=== PATIENT | male | born 1960 | race Caucasian/White ===

== ENCOUNTER 2021-06-08 11:29 | Inpatient (IN) | payer MEDICARE, MEDICAID, SELFPAY ==
[2021-06-08] VITALS (13 sets, daily range): BP systolic 118–157; BP diastolic 67–116; PULSE 85–119; RESP 16–129; TEMP 36.2; O2SAT 18–100
--- NOTE | ~2021-06-08 | XR_ITS ---
EXAMINATION: XR chest 2V DATE: 06/08/2021 12:21 INDICATION: Shortness of breath. Body aches. TECHNIQUE: Frontal and lateral views of the chest were obtained. COMPARISON: None. FINDINGS: The chest demonstrates clear lungs without pneumonia, pleural effusion, or pneumothorax. Th e heart size is normal. IMPRESSION: 1. No acute cardiopulmonary disease. Reviewed, dictated and finalized at location B. ATIONS AND MAINTENANCE TECHNICIAN
--- NOTE | ~2021-06-08 | CT_ITS ---
EXAMINATION: CTA chest PE protocol DATE: 06/08/2021 14:09 INDICATION: Chest pain. Shortness of breath. TECHNIQUE: Computed tomography angiography (CTA) of the chest was performed with 100 mL Omnipaque-350 intravenous contrast timed to evaluate the pulmonary arteries. Coronal maximum intensity projection 3D-reconstructions were created by the technologist. Automated exposure control and iterative reconst ruction technique were employed. The dose-length product was 843.26 mGy-cm. COMPARISON: Chest 2 views 06/08/2021 FINDINGS: There is mild emphysema. The lungs demonstrate minimal atelectasis. No pleural effusion. Th e heart size is normal. No pericardial effusion. There are coronary artery calcifications. There is n o pulmonary embolus. There is mild thoracic spondylosis. IMPRESSION: 1. No pulmonary embolus. Sensitivity is moderately decreased by motion artifact. 2. Mild emphysema. Reviewed, dictated and finalized at location B. AL PRESENTATION MANAGER IMPRESSION: 1. No pulmonary embolus. Sensitivity is moderately decreased by motion artifact . 2. Mild emphysema.
--- NOTE | 2021-06-08 12:04 | ECG_ITS ---
Measurements Intervals [place] Rate: 117 P: [place]: 0 QRS: -83 QRSD: 145 T: 89 QT: 365 QTc: 511 Interpretive Statements SINUS TACHCYARDIA RIGHT BUNDLE BRANCH BLOCK LEFT ANTERIOR FASCICULAR BLOCK LEFT VENTRICULAR HYPERTROPHY AND ST-T CHANGE MINIMAL Q WAVES- ANTEROSEPTAL LEADS BASELINE ARTIFACT- V3-V5 ABNORMAL ECG Electronically Signed On 06-08-2021 12:48:21 SOAPING DEPARTMENT SUPERVISOR by Eben Esquivel D.O.
[2021-06-08 12:17] LABS: Basophils Absolute Auto 0.1 K/mm3 (0.0-0.1); Basophils Percent Auto 0.6 % (0.2-1.2); Eosinophils Percent Auto 0.1 % (0-4.4); Hematocrit 50.7 % (42.0-52.0); Hemoglobin 16.5 g/dL (14.0-18.0); Immature Granulocyte Absolute 0.14 K/mm3 (0.00-0.031); Immature Granulocyte Percent A 0.8 % (0-0.5); Lymphocytes Absolute Auto 1.25 K/mm3 (0.9-3.2); Lymphocytes Percent Auto 6.7 % (18.3-44.2); Mean Corpuscular HGB Conc 32.5 g/dl (32-36); Mean Corpuscular Volume 95.1 fl (80-100); Mean Platelet Volume 8.7 fl (7.4-10.4); Monocytes Absolute Auto 1.7 K/mm3 (0.1-0.6); Monocytes Percent Auto 9.1 % (2.6-8.5); Neutrophils Absolute Auto 15.4 K/mm3 (1.3-6.7); Neutrophils Percent Auto 82.7 % (45.5-73.1); Platelet Count Result 392 k/mm3 (150-375); Red Blood Count 5.33 M/mm3 (4.6-6.20); Red Cell Distribution Width 12.7 % (11.5-14.5); White Blood Count 18.6 K/mm3 (4.5-10.0)
[2021-06-08 12:27] LABS: Alanine Aminotransferase 16 U/L (4-50); Albumin Level 5.2 g/dL (3.5-5.1); Alkaline Phosphatase 77 U/L (38-126); Aspartate Amino Transferase 17 U/L (17-59); Bilirubin,Total 0.4 mg/dL (0.2-1.3); Blood Urea Nitrogen 17 mg/dL (9-20); Calcium 9.2 mg/dL (8.4-10.2); Carbon Dioxide < 5 mmol/L (22-30); Chloride 101 mmol/L (98-107); Estimated CRCL calculation 47 ml/min; Estimated Glomerular Filt Rate 51; Glucose 385 mg/dL (65-110); INR 1.3; Lipase 64 U/L (23-300); Partial Thromboplastin Time 23.5 SECONDS (22.3-36.8); Prothrombin Time 15.6 Seconds (11.1-14.7); Sodium 138 mmol/L (137-145)
[2021-06-08 12:38] LABS: Troponin I < 0.012 ng/mL (0.000-0.034)
--- NOTE | 2021-06-08 14:11 | ED.SOB ---
HPI - SOB/Dyspnea General Chief Complaint: Shortness of Breath/Dyspnea Stated Complaint: WEAK,N/V DIZZINESS Time Seen by Provider: 06/08/21 13:52 Source: patient Mode of arrival: ambulatory Limitations: no limitations History of Present Illness HPI Narrative: Patient is a 61-year-old male complaining of shortness of breath accompanied by nausea, vomiting, body aches and fatigue x2 days. Patient denies any chest pain, abdominal pain, diarrhea, urinary symptoms, fever or chills. Related Data Home Medications Medication Instructions Recorded Confirmed atorvastatin 06/21/19 blood sugar diagnostic [Contour 06/21/19 06/21/19 Next Test Strips] dapagliflozin [Farxiga] mg 06/21/19 fenofibrate mg 06/21/19 glimepiride mg 06/21/19 hydrocodone-acetaminophen 06/21/19 insulin glargine [Basaglar KwikPen unit SUBCUT 06/21/19 U-100 Insulin] lisinopril 06/21/19 pen needle, diabetic [BD 06/21/19 06/21/19 Ultra-Fine Sharyn Pen Needle] Allergies Allergy/AdvReac Type Severity Reaction Status Date / Time No Known Allergies Allergy Unverified 07/19/17 16:50 Review of Systems Review of Systems: All systems reviewed & are unremarkable except as noted in HPI and below Constitutional: Constitutional: Denies excessive sweating, Denies fatigue, Denies fever(s), Denies headache(s), Denies lethargy, Denies malaise, Denies weakness and Denies weight loss Eyes: Eyes: Denies blurry vision, Denies change in vision and Denies loss of vision ENT: Denies dizziness, Denies ear discharge, Denies headache(s), Denies lip swelling, Denies epistaxis, Denies nasal congestion, Denies neck pain, Denies throat swelling and Denies tongue swelling Cardiovascular: Cardiovascular: Denies diaphoresis, Denies rapid heart rate, Denies edema, Denies irregular heart rhythm, Denies lightheadedness and Denies palpitations Respiratory: Respiratory: Denies chest congestion and Denies hemoptysis Gastrointestinal: Gastrointestinal: Denies abdominal pain, Denies melena, Denies hematochezia, Denies diarrhea, Denies nausea, Denies vomiting and Denies hematemesis Musculoskeletal: Musculoskeletal: Denies abnormal gait, Denies deformity, Denies joint swelling, Denies limited range of motion, Denies neck pain and Denies numbness Neurologic: Denies Abnormal speech present, Denies abnormal gait, Denies confusion, Denies dizziness, Denies headache(s), Denies focal weakness, Denies loss of vision, Denies numbness, Denies Other visual disturbances, Denies Sensory deficit (Neuro) and Denies weakness Psychiatric: Psychiatric: Denies confusion, Denies depression, Denies auditory hallucinations, Denies homicidal ideation and Denies suicidal ideation Endocrine: Endocrine: Denies cold intolerance, Denies excessive sweating, Denies fatigue, Denies heat intolerance and Denies palpitations Hematologic/Lymphatic: Hematologic/Lymphatic: Denies easy bleeding and Denies easy bruising Allergic/Immunologic: Allergic/Immunologic: Denies lip swelling, Denies throat swelling and Denies tongue swelling PMFSH Past Medical History Medical History Chronic back pain HTN (hypertension) Hypercholesterolemia Social History Social History Smoking status: Never smoker Alcohol intake: current Substance use: current Substance use type: marijuana Gender identity (if verbalized by the patient): Male Exam Const: General: cooperative, healthy appearing, comfortable, no acute distress, well developed, alert and awake; No confusion Orientation/consciousness: oriented to person, oriented to place, oriented to time, patient oriented x3 and No confusion Limitations: no limitations HENMT: Head: normal to inspection, normocephalic and atraumatic Ears: hearing grossly normal bilaterally, TM normal on the right and TM normal on the left General nose exam: Normal external nose pres
[2021-06-08 14:34] LABS: Base Excess ABG -26.7 mEq/l (+/-2.0); Carboxyhemoglobin 0.3 % THb (0-2.0); Fractional Inspired Oxygen 21 %; HCO3 ABG 2.5 mEq/l (22.0-26.0); Methemoglobin ABG 0.4 %THb (0-1.5); Oxygen Content ABG 22.1 %vol (16.0-22.0); Oxygen Saturation ABG 97.5 % (95.0-100.0); Oxyhemoglobin 97.2 % THb (90.0-100.0); PO2 ABG 141.9 mmHg (80.0-100.0); PO2 FiO2 Ratio Arterial Blood 6.76 %; Reduced Hemoglobin 2.1 %THb (0-5.0)
[2021-06-08 14:37] LABS: PCO2 ABG 10.4 mmHg (35.0-45.0); pH ABG 7.003 (7.350-7.450)
[2021-06-08 14:38] LABS: Device ROOM AIR; Modified Allen's Test Pass; Site Drawn RIGHT RADIAL
[2021-06-08] MEDS: LACTATED RINGERS 1,000 ML 999 ML IV CONT (14:40)
[2021-06-08 14:51] LABS: Lactic Acid Reflex 2.8 mmol/L (0.7-2.1)
[2021-06-08] MEDS: SODIUM CHLORIDE 0.9% IV 1,000 ML 999 ML IV CONT (14:57)
[2021-06-08] MEDS: ONDANSETRON INJ 4 MG/2 ML VIAL IV PUSH (14:57)
[2021-06-08] MEDS: INSULIN HUMAN REGULAR (*BKC) 100 UNITS/ML 10 UNITS IV PUSH (14:57)
[2021-06-08 15:10] LABS: Glucose Point of Care 416 mg/dl (65-105)
[2021-06-08 15:14] LABS: NT Pro B Type Natriuretic Pept 395 pg/mL (5-100)
--- NOTE | 2021-06-08 15:38 | PC.NURSE ---
Cj Arevalo [phone]
[2021-06-08 15:43] LABS: Troponin I 0.015 ng/mL (0.000-0.034)
[2021-06-08 16:26] LABS: Add Urine Microscopic? YES; Appearance Urine Clear (Clear); Bilirubin Urine Negative (Negative); Blood Urine 2+ (Negative); Color Urine Straw (Yellow); Glucose Urine UA 3+ mg/dL (Negative); Ketones Urine 2+ mg/dL (Negative); Leukocyte Esterase Ur Negative LEU/UL (Negative); Mucus Urine Rare /lpf; Nitrate Urine Negative (Negative); Protein Urine 2+ mg/dL (Negative); RBC Urine 0-2 /hpf (0-2); Specific Grav Ur 1.028 (1.001-1.035); Squamous Epithelial Cell Urine Rare /hpf (Few); Urobilinogen Urine Negative mg/dL (<2.0); WBC Urine 0-3 /hpf
[2021-06-08] MEDS: INSULIN HUMAN REGULAR (*BKC) 100 UNITS in SODIUM CHLORIDE 0.9% IV 99 ML 6.9 UNITS IV CONT (16:32)
[2021-06-08 16:34] LABS: SARS-CoV-2 RNA PCR Negative
[2021-06-08 16:38] LABS: Glucose Point of Care 405 mg/dl (65-105)
--- NOTE | 2021-06-08 17:15 | PM.IMHP ---
H&P: HPI History of Present Illness Date/Time: 06/08/21 17:15 Chief Complaint: Nausea, vomiting, weakness. Narrative: This is a 61-year-old male with insulin-dependent diabetes, dyslipidemia, and hypertension who presented to the emergency department earlier today from home for evaluation of nausea, vomiting, and weakness. He has not been feeling well for several days with nausea, vomiting, and occasional loose stool. For the past 2 days he has developed body aches, a nonproductive cough, shortness of breath, and significant weakness. In the emergency department he was found to be in DKA and he is being admitted in this setting. At the time my evaluation he is complaining of extreme thirst and reports that has been going on for a couple of days. He denies fever, sinus congestion, rhinorrhea, otalgia, odynophagia, chest pain, hematemesis, dysuria, and wounds. No known exposure to those positive for COVID 19. Denies sick contacts. Review of Systems Review of Systems: Twelve systems were reviewed. No syncope or near syncope. Denies focal weakness. Reports mild headache. He denies wounds. Except as documented, all other systems were reviewed and are negative. [facility]LY [facility] Past Medical History Medical History (Updated 06/08/21 @ 20:26 by Tamera Alexis PA-C) Chronic back pain Dyslipidemia Hypertension Insulin dependent diabetes mellitus Surgical History Surgical History (Updated 06/08/21 @ 20:10 by Tamera Alexis PA-C) No history of major surgery within 1 month Family History Family History (Updated 06/08/21 @ 20:10 by Tamera Alexis PA-C) Other Diabetes mellitus Heart disease Hypertension Social History Social History (Updated 06/08/21 @ 20:12 by Tamera Alexis PA-C) Social History: The patient lives in [place] with his mother. He is on disability. Smokes marijuana and drinks alcohol in moderation. Denies tobacco use. He designates his mother, Carleen Arevalo, as his surrogate decision maker. Code status: Full code. Meds Home Medications and Allergies Home Medications Medication Instructions Recorded Confirmed Type atorvastatin 06/21/19 History blood sugar diagnostic [Contour 06/21/19 06/21/19 History Next Test Strips] dapagliflozin [Farxiga] mg 06/21/19 History fenofibrate mg 06/21/19 History glimepiride mg 06/21/19 History griseofulvin microsize 500 mg PO DAILY #30 tablet 06/21/19 Rx hydrocodone-acetaminophen 06/21/19 History insulin glargine [Basaglar KwikPen unit SUBCUT 06/21/19 History U-100 Insulin] lisinopril 06/21/19 History pen needle, diabetic [BD 06/21/19 06/21/19 History Ultra-Fine Sharyn Pen Needle] Allergies Allergy/AdvReac Type Severity Reaction Status Date / Time No Known Allergies Allergy Unverified 06/08/21 18:36 Vital Signs Vital Signs - 24 hr 06/08/21 12:00 06/08/21 13:58 06/08/21 14:41 Temperature 97.2 F L Pulse Rate 85 119 H 117 H Respiratory Rate 129 H 26 H 36 H Blood Pressure 142/116 H 157/91 H Pulse Oximetry 95 98 99 06/08/21 16:37 06/08/21 17:58 06/08/21 18:33 Temperature Pulse Rate 114 H 106 H 108 H Respiratory Rate 28 H 28 H 22 H Blood Pressure 128/106 H 151/75 H 135/72 Pulse Oximetry 100 100 06/08/21 18:34 06/08/21 18:35 06/08/21 19:37 Temperature Pulse Rate 107 H 107 H Respiratory Rate 22 H Blood Pressure 124/78 Pulse Oximetry 100 18 L Exam Narrative: General: Ill-appearing male lying in bed. Weight: 77.3 kg. BMI: 25.9. HEENT: PERRL, EOMI. Sclerae anicteric. Tacky mucous membranes. Edentulous. Neck: Supple. No adenopathy or JVD. Respiratory: Demonstrates Kussmaul respirations. Speaking in 5 to 6 word sentences. Occasional upper airway rhonchi which clear with coughing. Lungs otherwise clear to auscultation. Cardiovascular: Tachycardic with S1-S2. Gastrointestinal: Abdomen is soft, nontender, and nondistended with positive bowel sounds. Skin: Warm and dry. No rash o
[2021-06-08 17:30] LABS: Reflex Lactic Acid Yes or No Add Lactic
[2021-06-08 17:32] LABS: Glucose Point of Care 446 mg/dl (65-105)
--- NOTE | 2021-06-08 17:33 | PC.NURSE ---
Insulin titrated per protocol. Hospitalist made aware of increase in BS.
[2021-06-08 18:31] LABS: Troponin I < 0.012 ng/mL (0.000-0.034)
[2021-06-08 18:41] LABS: Glucose Point of Care 380 mg/dl (65-105)
[2021-06-08 19:45] LABS: Glucose Point of Care 287 mg/dl (65-105)
[2021-06-08 20:46] LABS: Anion Gap 28 mmol/L (8-16); Blood Urea Nitrogen 19 mg/dL (9-20); Calcium 9.1 mg/dL (8.4-10.2); Carbon Dioxide 6 mmol/L (22-30); Chloride 105 mmol/L (98-107); Estimated CRCL calculation 54 ml/min; Estimated Glomerular Filt Rate > 60; Glucose 262 mg/dL (65-110); Potassium 4.6 mmol/L (3.4-5.0); Sodium 139 mmol/L (137-145)
[2021-06-08] MEDS: KCL 20 MEQ/D5/0.45% SOD CHL 1,000 ML 150 ML IV CONT (21:00)
[2021-06-08 21:11] LABS: Glucose Point of Care 221 mg/dl (65-105)
[2021-06-08 22:06] LABS: CRP 0.9 mg/dL (<1.0); Magnesium 1.9 mg/dL (1.6-2.3)
[2021-06-08 22:41] LABS: Glucose Point of Care 178 mg/dl (65-105)
[2021-06-08] MEDS: ENOXAPARIN 40 MG/0.4 ML SYRINGE SUB-Q (22:46)
[2021-06-09] VITALS (29 sets, daily range): BP systolic 128–148; BP diastolic 62–94; PULSE 91–112; RESP 14–29; TEMP 36.2–36.5; O2SAT 96–100; BMI 24.3
[2021-06-09] MEDS: SODIUM CHLORIDE 0.9% IV 1,000 ML 150 ML IV CONT
[2021-06-09 00:17] LABS: Glucose Point of Care 173 mg/dl (65-105)
[2021-06-09 01:42] LABS: Glucose Point of Care 153 mg/dl (65-105)
[2021-06-09 02:10] LABS: Anion Gap 23 mmol/L (8-16); Blood Urea Nitrogen 19 mg/dL (9-20); Calcium 9.1 mg/dL (8.4-10.2); Carbon Dioxide 6 mmol/L (22-30); Chloride 107 mmol/L (98-107); Estimated CRCL calculation 71 ml/min; Estimated Glomerular Filt Rate > 60; Glucose 180 mg/dL (65-110); Potassium 4.6 mmol/L (3.4-5.0); Sodium 136 mmol/L (137-145)
[2021-06-09 03:38] LABS: Glucose Point of Care 118 mg/dl (65-105)
[2021-06-09 04:32] LABS: Glucose Point of Care 123 mg/dl (65-105)
[2021-06-09 04:53] LABS: Basophils Percent Auto 0.2 % (0.2-1.2); Eosinophils Percent Auto 0.1 % (0-4.4); Hemoglobin 13.7 g/dL (14.0-18.0); Immature Granulocyte Absolute 0.09 K/mm3 (0.00-0.031); Immature Granulocyte Percent A 0.5 % (0-0.5); Lymphocytes Absolute Auto 1.54 K/mm3 (0.9-3.2); Mean Corpuscular HGB Conc 34.3 g/dl (32-36); Mean Corpuscular Hemoglobin 30.9 pg (26-34); Mean Corpuscular Volume 90.1 fl (80-100); Mean Platelet Volume 8.8 fl (7.4-10.4); Monocytes Absolute Auto 1.8 K/mm3 (0.1-0.6); Monocytes Percent Auto 10.8 % (2.6-8.5); Neutrophils Absolute Auto 13.6 K/mm3 (1.3-6.7); Neutrophils Percent Auto 79.4 % (45.5-73.1); Platelet Count Result 267 k/mm3 (150-375); Red Blood Count 4.44 M/mm3 (4.6-6.20); Red Cell Distribution Width 12.6 % (11.5-14.5); White Blood Count 17.1 K/mm3 (4.5-10.0)
[2021-06-09 05:30] LABS: Alanine Aminotransferase 13 U/L (4-50); Albumin Level 4.1 g/dL (3.5-5.1); Alkaline Phosphatase 54 U/L (38-126); Anion Gap 15 mmol/L (8-16); Aspartate Amino Transferase 22 U/L (17-59); Bilirubin,Total 0.4 mg/dL (0.2-1.3); Blood Urea Nitrogen 16 mg/dL (9-20); Calcium 8.9 mg/dL (8.4-10.2); Carbon Dioxide 11 mmol/L (22-30); Chloride 107 mmol/L (98-107); Estimated CRCL calculation 104 ml/min; Estimated Glomerular Filt Rate > 60; Glucose 132 mg/dL (65-110); Magnesium 1.7 mg/dL (1.6-2.3); Potassium 3.9 mmol/L (3.4-5.0); Sodium 133 mmol/L (137-145)
[2021-06-09 05:32] LABS: Lactic Acid Reflex 0.8 mmol/L (0.7-2.1)
[2021-06-09 05:44] LABS: Glucose Point of Care 121 mg/dl (65-105)
[2021-06-09 06:01] LABS: Thyroid Stimulating Hormone Reflex 0.447 uIU/mL (0.465-4.68)
--- NOTE | 2021-06-09 06:12 | PC.NURSE ---
Spoke to hospitalist Dr Berkowitz at this time regarding pt BS 121 at last check and a closed anion gap. Gave VORB to d/c insulin gtt and will place orders for treatment regimen.
[2021-06-09 07:59] LABS: Free T4 Free Thyroxine Reflex 1.34 ng/dL (0.78-2.19)
--- NOTE | 2021-06-09 08:06 | PC.NURSE ---
Updated Dr. Narvaez about pt. status. state she will look at pt. chart and see if pt. can be downgraded. no further orders at this time.
[2021-06-09 08:17] LABS: Glucose Point of Care 134 mg/dl (65-105)
[2021-06-09 08:38] LABS: Anion Gap 16 mmol/L (8-16); Blood Urea Nitrogen 15 mg/dL (9-20); Carbon Dioxide 13 mmol/L (22-30); Chloride 107 mmol/L (98-107); Estimated CRCL calculation 104 ml/min; Estimated Glomerular Filt Rate > 60; Glucose 138 mg/dL (65-110); Potassium 4.1 mmol/L (3.4-5.0); Sodium 136 mmol/L (137-145)
[2021-06-09 08:53] LABS: Total Triiodothyronine (T3) 0.71 NG/ML (0.97-1.69)
[2021-06-09] MEDS: INSULIN GLARGINE (*BKC) 100 UNITS/ML 22 UNITS SUB-Q (10:26)
[2021-06-09 10:29] LABS: Glucose Point of Care 148 mg/dl (65-105)
[2021-06-09 10:32] LABS: Alveolar/Arterial O2 Gradient 29.6 mmHg; Base Excess ABG -11.4 mEq/l (+/-2.0); Fractional Inspired Oxygen 21 %; HCO3 ABG 12.3 mEq/l (22.0-26.0); Oxygen Content ABG 19.3 %vol (16.0-22.0); Oxygen Saturation ABG 96.8 % (95.0-100.0); Oxyhemoglobin 96.5 % THb (90.0-100.0); PO2 ABG 92.2 mmHg (80.0-100.0); PO2 FiO2 Ratio Arterial Blood 4.39 %; Total Hemoglobin 14.2 g/dL (12.0-18.0)
[2021-06-09 10:33] LABS: Device ROOM AIR; Modified Allen's Test Pass; PCO2 ABG 23.3 mmHg (35.0-45.0); Site Drawn RIGHT RADIAL
[2021-06-09] MEDS: HYDROcodone/acetaminophen (*CRX) 7.5-325 MG TABLET 1 TAB PO ×2 (10:42→20:40)
--- NOTE | 2021-06-09 11:13 | ADMGEN ---
This patient, Stewart Arevalo, was admitted to IMU Room 206-02. Patient/family oriented to hospital policies and general routines including ID bracelet, bed and alarms, visiting hours, pain management, procedures, bathroom and other care routines, personal items, smoking policy, room service/diet, and visiting hours. Information on how to activate the Rapid Response Team has been discussed. Patient/Family are encouraged to report perceived risks to care and to ask questions if they do not understand what they are told or what they should do.
[2021-06-09 11:20] LABS: Lactic Acid Reflex 0.7 mmol/L (0.7-2.1)
[2021-06-09 11:21] LABS: Anion Gap 16 mmol/L (8-16); Blood Urea Nitrogen 15 mg/dL (9-20); Carbon Dioxide 15 mmol/L (22-30); Chloride 103 mmol/L (98-107); Estimated CRCL calculation 90 ml/min; Estimated Glomerular Filt Rate > 60; Glucose 176 mg/dL (65-110); Potassium 4.1 mmol/L (3.4-5.0); Sodium 134 mmol/L (137-145)
--- NOTE | 2021-06-09 11:48 | PM.IMPN ---
Progress Note: A&P Assessment and Plan (1) Diabetic ketoacidosis: Code(s): E11.10 - Type 2 diabetes mellitus with ketoacidosis without coma Status: Acute Assessment and Plan: Precipitating etiology is not entirely clear though it does sound as though he is not always compliant with his insulin or monitoring his glucose at home. He has been started on insulin drip will to will be titrated per DKA protocol. He is receiving aggressive IV fluid rehydration. Anion gap unable to be calculated on arrival due to inability to quantify his serum bicarbonate level as it was so low. (2) Insulin dependent diabetes mellitus: Status: Acute Assessment and Plan: Resume basal insulin upon resolution of DKA. Check hemoglobin A1c. (3) Metabolic acidosis: Code(s): E87.2 - Acidosis Status: Acute Assessment and Plan: Related to diabetic ketoacidosis though his lactic acid level is also mildly elevated. Monitor chemistries closely to ensure resolution of acidosis with the above therapies. (4) Leukocytosis: Code(s): D72.829 - Elevated white blood cell count, unspecified Status: Acute Assessment and Plan: May very well be due to a stress response. Chest x-ray and urinalysis were unremarkable. (5) Elevated lactic acid level: Code(s): R79.89 - Other specified abnormal findings of blood chemistry Status: Acute Assessment and Plan: Sepsis seems less likely as there is no evidence to suggest underlying infection. We will continue with aggressive IV fluid rehydration. Blood cultures have been ordered to rule out bacteremia which seems unlikely. (6) Renal failure: Code(s): N19 - Unspecified kidney failure Status: Acute Assessment and Plan: Most likely due to profound dehydration. Check renal ultrasound as he certainly has risk factors for medical renal disease. He is being aggressively hydrated as above. Avoid nephrotoxic agents. (7) Hypertension: Code(s): I10 - Essential (primary) hypertension Status: Acute Assessment and Plan: Blood pressures were reviewed and they are reasonable. Monitor closely as his antihypertensives are on hold given renal failure. (8) Dehydration: Code(s): E86.0 - Dehydration Status: Acute Assessment and Plan: Secondary to poor oral intake, vomiting and loose stools. He has been adequately hydrated. (9) Person under investigation for COVID-19: Code(s): Z20.822 - Contact with and (suspected) exposure to COVID-19 Status: Acute Assessment and Plan: Patient will remain in isolation pending SARS-CoV-2 by PCR. 06/09/21 pt received from ER cont on IVFs zosyn added abg still acidotic but AG closed and insulin gtt stopped start diet cont ISS and home lantus repeat ABG and lactic acid bicarb if remains acidotic on repeat Subjective Date/time seen: 06/09/21 11:48 pt has no complaints, we discuss noncompliance and risk of Exam Narrative: GEN: NAD, AAOx3, cooperative HEENT: NCAT, MMM, EOMI Neck: no JVD Heart: S1S2 RRR Lungs: CTA B/l Abd: soft, NT, ND, bowel sounds normoactive Ext: moves all, no cyanosis, no clubbing, no edema Neuro: normal cognition, moves all extremities Psych: mood and affect congruent Objective Data Vital Signs Vital Signs: Vital Signs - 24 hr 06/08/21 12:00 06/08/21 13:58 06/08/21 14:41 Temperature 97.2 F L Pulse Rate 85 119 H 117 H Respiratory Rate 129 H 26 H 36 H Blood Pressure 142/116 H 157/91 H Pulse Oximetry 95 98 99 06/08/21 16:37 06/08/21 17:58 06/08/21 18:33 Temperature Pulse Rate 114 H 106 H 108 H Respiratory Rate 28 H 28 H 22 H Blood Pressure 128/106 H 151/75 H 135/72 Pulse Oximetry 100 100 06/08/21 18:34 06/08/21 18:35 06/08/21 19:37 Temperature Pulse Rate 107 H 107 H Respiratory Rate 22 H Blood Pressure 124/78 Pulse Oximetry 100 18 L 06/08
[2021-06-09 12:22] LABS: Glucose Point of Care 179 mg/dl (65-105)
--- NOTE | 2021-06-09 14:27 | PCDIET ---
RDN consulted for DKA. Visited with pt who appeared to be sleeping upon arrival to room. Spoke to pt who seemed slightly out of it at this time. Pt agreed to receive diabetes management education but reported that he was not feeling up to it as this time. Will attempt to provide education tomorrow if pt is feeling up to it at that time.
[2021-06-09] MEDS: SODIUM CHLORIDE 0.9% IV 1,000 ML 75 ML IV CONT (14:49)
[2021-06-09 16:45] LABS: Glucose Point of Care 296 mg/dl (65-105)
[2021-06-09] MEDS: INSULIN ASPART (*BKC) 100 UNITS/ML SUB-Q (18:00)
[2021-06-09] MEDS: ENOXAPARIN 40 MG/0.4 ML SYRINGE SUB-Q (20:24)
[2021-06-09 20:40] LABS: Alveolar/Arterial O2 Gradient 28.8 mmHg; Base Excess ABG -3.9 mEq/l (+/-2.0); Fractional Inspired Oxygen 21 %; HCO3 ABG 19.4 mEq/l (22.0-26.0); Oxygen Content ABG 19.4 %vol (16.0-22.0); Oxygen Saturation ABG 96.6 % (95.0-100.0); Oxyhemoglobin 96.1 % THb (90.0-100.0); PCO2 ABG 30.7 mmHg (35.0-45.0); PO2 ABG 84.2 mmHg (80.0-100.0); PO2 FiO2 Ratio Arterial Blood 4.01 %; Total Hemoglobin 14.3 g/dL (12.0-18.0); pH ABG 7.419 (7.350-7.450)
[2021-06-09 20:41] LABS: Device ROOM AIR; Modified Allen's Test Pass; Site Drawn RIGHT RADIAL
[2021-06-09 20:57] LABS: Lactic Acid Reflex 0.8 mmol/L (0.7-2.1)
[2021-06-09 21:16] LABS: Glucose Point of Care 270 mg/dl (65-105)
[2021-06-10] VITALS (9 sets, daily range): BP systolic 114–137; BP diastolic 63–87; PULSE 70–92; RESP 16–20; TEMP 35.8–36.9; O2SAT 96–99
[2021-06-10 05:05] LABS: Basophils Percent Auto 0.5 % (0.2-1.2); Eosinophils Absolute Auto 0.1 K/mm3 (0-0.3); Eosinophils Percent Auto 1.4 % (0-4.4); Hematocrit 36.6 % (42.0-52.0); Hemoglobin 12.9 g/dL (14.0-18.0); Immature Granulocyte Absolute 0.02 K/mm3 (0.00-0.031); Immature Granulocyte Percent A 0.3 % (0-0.5); Lymphocytes Absolute Auto 2.19 K/mm3 (0.9-3.2); Lymphocytes Percent Auto 29.7 % (18.3-44.2); Mean Corpuscular HGB Conc 35.2 g/dl (32-36); Mean Corpuscular Hemoglobin 30.4 pg (26-34); Mean Corpuscular Volume 86.3 fl (80-100); Monocytes Absolute Auto 0.7 K/mm3 (0.1-0.6); Monocytes Percent Auto 9.2 % (2.6-8.5); Neutrophils Absolute Auto 4.3 K/mm3 (1.3-6.7); Neutrophils Percent Auto 58.9 % (45.5-73.1); Platelet Count Result 227 k/mm3 (150-375); Red Blood Count 4.24 M/mm3 (4.6-6.20); Red Cell Distribution Width 12.5 % (11.5-14.5); White Blood Count 7.4 K/mm3 (4.5-10.0)
[2021-06-10 05:14] LABS: Sodium 133 mmol/L (137-145)
[2021-06-10 05:27] LABS: Alanine Aminotransferase 11 U/L (4-50); Albumin Level 3.3 g/dL (3.5-5.1); Alkaline Phosphatase 47 U/L (38-126); Anion Gap 8 mmol/L (8-16); Aspartate Amino Transferase 20 U/L (17-59); Bilirubin,Total 0.4 mg/dL (0.2-1.3); Blood Urea Nitrogen 16 mg/dL (9-20); Calcium 8.5 mg/dL (8.4-10.2); Carbon Dioxide 22 mmol/L (22-30); Chloride 103 mmol/L (98-107); Estimated CRCL calculation 122 ml/min; Estimated Glomerular Filt Rate > 60; Glucose 192 mg/dL (65-110); Lipase 202 U/L (23-300); Magnesium 1.9 mg/dL (1.6-2.3)
[2021-06-10] MEDS: SODIUM CHLORIDE 0.9% IV 1,000 ML 75 ML IV CONT ×2 (05:58→18:52)
[2021-06-10 08:55] LABS: Glucose Point of Care 205 mg/dl (65-105)
[2021-06-10] MEDS: INSULIN GLARGINE (*BKC) 100 UNITS/ML 22 UNITS SUB-Q (09:00)
[2021-06-10] MEDS: ATORVASTATIN 20 MG TABLET PO (09:00)
[2021-06-10] MEDS: lisinopriL 20 MG TABLET 40 MG PO (09:00)
[2021-06-10] MEDS: FENOFIBRATE 160 MG TABLET PO (09:00)
[2021-06-10] MEDS: INSULIN ASPART (*BKC) 100 UNITS/ML SUB-Q (09:01)
[2021-06-10] MEDS: HYDROcodone/acetaminophen (*CRX) 7.5-325 MG TABLET 1 TAB PO ×3 (09:03→23:36)
[2021-06-10] MEDS: POTASSIUM CHLORIDE 20 MEQ TABLET.ER 40 MEQ PO ×2 (11:28→17:45)
[2021-06-10] MEDS: GLIMEPIRIDE 1 MG TABLET PO (11:28)
[2021-06-10] MEDS: EMPAGLIFLOZIN 25 MG TABLET PO (11:28)
[2021-06-10 12:20] LABS: Glucose Point of Care 275 mg/dl (65-105)
--- NOTE | 2021-06-10 16:48 | PM.IMPN ---
Progress Note: A&P Assessment and Plan (1) Diabetic ketoacidosis: Code(s): E11.10 - Type 2 diabetes mellitus with ketoacidosis without coma Status: Acute Assessment and Plan: Precipitating etiology is not entirely clear though it does sound as though he is not always compliant with his insulin or monitoring his glucose at home. He has been started on insulin drip will to will be titrated per DKA protocol. He is receiving aggressive IV fluid rehydration. Anion gap unable to be calculated on arrival due to inability to quantify his serum bicarbonate level as it was so low. (2) Insulin dependent diabetes mellitus: Status: Acute Assessment and Plan: Resume basal insulin upon resolution of DKA. Check hemoglobin A1c. (3) Metabolic acidosis: Code(s): E87.2 - Acidosis Status: Acute Assessment and Plan: Related to diabetic ketoacidosis though his lactic acid level is also mildly elevated. Monitor chemistries closely to ensure resolution of acidosis with the above therapies. (4) Leukocytosis: Code(s): D72.829 - Elevated white blood cell count, unspecified Status: Acute Assessment and Plan: May very well be due to a stress response. Chest x-ray and urinalysis were unremarkable. (5) Elevated lactic acid level: Code(s): R79.89 - Other specified abnormal findings of blood chemistry Status: Acute Assessment and Plan: Sepsis seems less likely as there is no evidence to suggest underlying infection. We will continue with aggressive IV fluid rehydration. Blood cultures have been ordered to rule out bacteremia which seems unlikely. (6) Renal failure: Code(s): N19 - Unspecified kidney failure Status: Acute Assessment and Plan: Most likely due to profound dehydration. Check renal ultrasound as he certainly has risk factors for medical renal disease. He is being aggressively hydrated as above. Avoid nephrotoxic agents. (7) Hypertension: Code(s): I10 - Essential (primary) hypertension Status: Acute Assessment and Plan: Blood pressures were reviewed and they are reasonable. Monitor closely as his antihypertensives are on hold given renal failure. (8) Dehydration: Code(s): E86.0 - Dehydration Status: Acute Assessment and Plan: Secondary to poor oral intake, vomiting and loose stools. He has been adequately hydrated. (9) Person under investigation for COVID-19: Code(s): Z20.822 - Contact with and (suspected) exposure to COVID-19 Status: Acute Assessment and Plan: Patient will remain in isolation pending SARS-CoV-2 by PCR. 06/09/21 pt received from ER cont on IVFs zosyn added abg still acidotic but AG closed and insulin gtt stopped start diet cont ISS and home lantus repeat ABG and lactic acid bicarb if remains acidotic on repeat 06/10/21 BG not at goal poor compliance and follow up outpt will try and adjust meds prior to dc glimepiride -> glipizide cont current care labs normalized elevated WBC likely reactive vs infectious will dc zosyn monitor overnight anticipate dc tomorrow Subjective Date/time seen: 06/10/21 16:48 BG not at goal pt states that he needs helping caring for himself and that his sister has agreed to help him. Pt lives with his mother and his sister lives near by. Will try and titrate his home meds prior to dc and have assistance w insulin and diabetic education after dc Exam Narrative: GEN: NAD, AAOx3, cooperative HEENT: NCAT, MMM, EOMI Neck: no JVD Heart: S1S2 RRR Lungs: CTA B/l Abd: soft, NT, ND, bowel sounds normoactive Ext: moves all, no cyanosis, no clubbing, no edema Neuro: normal cognition, moves all extremities Psych: mood and affect congruent Objective Data Vital Signs Vital Signs: Vital Signs - 24 hr 06/09/21 17:09 06/09/21 18:00 06/09/21 20:00 Temperature 97.5 F L 97.1 F L Pul
[2021-06-10 16:50] LABS: Glucose Point of Care 195 mg/dl (65-105)
[2021-06-10] MEDS: glipiZIDE 5 MG TABLET PO (17:45)
--- NOTE | 2021-06-10 18:26 | PC.NURSE ---
This patient, Stewart Arevalo, was transferred to [[id number]] on 06/10/21 at 1826. Personal belongings sent with patient. Report given to [ MARTA Christine]. Appropriate documentation sent with patient.
--- NOTE | 2021-06-10 18:56 | PC.NURSE ---
1820: Recieved report at this time. 1841: Transport arrived on the floor at this time, by wheelchair.
[2021-06-10] MEDS: ENOXAPARIN 40 MG/0.4 ML SYRINGE SUB-Q (20:07)
[2021-06-10 20:44] LABS: Glucose Point of Care 178 mg/dl (65-105)
[2021-06-10 23:44] LABS: Glucose Point of Care 166 mg/dl (65-105)
[2021-06-11 00:49] VITALS: BP 128/77; PULSE 73; RESP 16; TEMP 35.8; O2SAT 98
[2021-06-11 05:05] LABS: Glucose Point of Care 111 mg/dl (65-105)
[2021-06-11] MEDS: glipiZIDE 5 MG TABLET PO (06:08)
[2021-06-11 06:10] VITALS: BP 118/77; PULSE 68; RESP 20; TEMP 35.7; O2SAT 96
[2021-06-11 06:37] LABS: Anion Gap 10 mmol/L (8-16); Blood Urea Nitrogen 17 mg/dL (9-20); Calcium 8.3 mg/dL (8.4-10.2); Carbon Dioxide 24 mmol/L (22-30); Chloride 102 mmol/L (98-107); Estimated CRCL calculation 122 ml/min; Estimated Glomerular Filt Rate > 60; Glucose 105 mg/dL (65-110); Potassium 3.1 mmol/L (3.4-5.0); Sodium 136 mmol/L (137-145)
[2021-06-11 07:42] LABS: Glucose Point of Care 112 mg/dl (65-105)
[2021-06-11] MEDS: SODIUM CHLORIDE 0.9% IV 1,000 ML 75 ML IV CONT (08:37)
[2021-06-11] MEDS: EMPAGLIFLOZIN 25 MG TABLET PO (08:38)
[2021-06-11] MEDS: lisinopriL 20 MG TABLET 40 MG PO (08:38)
[2021-06-11] MEDS: FENOFIBRATE 160 MG TABLET PO (08:39)
[2021-06-11] MEDS: ATORVASTATIN 20 MG TABLET PO (08:39)
[2021-06-11 09:30] LABS: Glucose Point of Care 247 mg/dl (65-105)
[2021-06-11] MEDS: POTASSIUM CHLORIDE 20 MEQ TABLET 40 MEQ PO (09:35)
--- NOTE | 2021-06-11 10:48 | P.CDI_ITS ---
CDI Query Clarification Request -Renal failure, unspecified has been documented -06/08 creatinine 1.40 and GFR 51, 06/11 creatinine 0.50 and GFR >60 Please further clarify acuity of renal failure: * Acute * Chronic * Acute on chronic * Unable to determine <Georgia Uribe RN - Last Filed: 06/11/21 10:52> Clarified Diagnosis (1) Renal failure: Code(s): N19 - Unspecified kidney failure <Georgia Uribe RN - Last Filed: 06/11/21 10:52> Status: Acute <Georgia Uribe RN - Last Filed: 06/11/21 10:52> (2) JOHN (acute kidney injury): Code(s): N17.9 - Acute kidney failure, unspecified <Georgia Uribe RN - Last Filed: 06/11/21 10:52> Status: Acute <Georgia Uribe RN - Last Filed: 06/11/21 10:52>
[2021-06-11 11:40] LABS: Glucose Point of Care 157 mg/dl (65-105)
[2021-06-11 14:00] VITALS: BP 117/86; PULSE 78; RESP 18; TEMP 35.9; O2SAT 98
[2021-06-11] MEDS: HYDROcodone/acetaminophen (*CRX) 7.5-325 MG TABLET 1 TAB PO (14:10)
[2021-06-11 16:31] LABS: Glucose Point of Care 153 mg/dl (65-105)
--- NOTE | 2021-06-11 17:53 | PM.DS ---
DS: Admitting Diagnosis Discharge Date 06/11/21 Admitting Diagnosis (1) Diabetic ketoacidosis: Code(s): E11.10 - Type 2 diabetes mellitus with ketoacidosis without coma Status: Acute Assessment and Plan: Precipitating etiology is not entirely clear though it does sound as though he is not always compliant with his insulin or monitoring his glucose at home. He has been started on insulin drip will to will be titrated per DKA protocol. He is receiving aggressive IV fluid rehydration. Anion gap unable to be calculated on arrival due to inability to quantify his serum bicarbonate level as it was so low. (2) Insulin dependent diabetes mellitus: Status: Acute Assessment and Plan: Resume basal insulin upon resolution of DKA. Check hemoglobin A1c. (3) Metabolic acidosis: Code(s): E87.2 - Acidosis Status: Acute Assessment and Plan: Related to diabetic ketoacidosis though his lactic acid level is also mildly elevated. Monitor chemistries closely to ensure resolution of acidosis with the above therapies. (4) Leukocytosis: Code(s): D72.829 - Elevated white blood cell count, unspecified Status: Acute Assessment and Plan: May very well be due to a stress response. Chest x-ray and urinalysis were unremarkable. (5) Elevated lactic acid level: Code(s): R79.89 - Other specified abnormal findings of blood chemistry Status: Acute Assessment and Plan: Sepsis seems less likely as there is no evidence to suggest underlying infection. We will continue with aggressive IV fluid rehydration. Blood cultures have been ordered to rule out bacteremia which seems unlikely. (6) Renal failure: Code(s): N19 - Unspecified kidney failure Status: Acute Assessment and Plan: Most likely due to profound dehydration. Check renal ultrasound as he certainly has risk factors for medical renal disease. He is being aggressively hydrated as above. Avoid nephrotoxic agents. (7) Hypertension: Code(s): I10 - Essential (primary) hypertension Status: Acute Assessment and Plan: Blood pressures were reviewed and they are reasonable. Monitor closely as his antihypertensives are on hold given renal failure. (8) Dehydration: Code(s): E86.0 - Dehydration Status: Acute Assessment and Plan: Secondary to poor oral intake, vomiting and loose stools. He has been adequately hydrated. (9) Person under investigation for COVID-19: Code(s): Z20.822 - Contact with and (suspected) exposure to COVID-19 Status: Acute Assessment and Plan: Patient will remain in isolation pending SARS-CoV-2 by PCR. DS: Discharge Diagnosis Discharge Diagnosis (1) JOHN (acute kidney injury): Code(s): N17.9 - Acute kidney failure, unspecified Status: Acute (2) Dehydration: Code(s): E86.0 - Dehydration Status: Acute (3) Renal failure: Code(s): N19 - Unspecified kidney failure Status: Acute (4) Metabolic acidosis: Code(s): E87.2 - Acidosis Status: Acute (5) Elevated lactic acid level: Code(s): R79.89 - Other specified abnormal findings of blood chemistry Status: Acute (6) Leukocytosis: Code(s): D72.829 - Elevated white blood cell count, unspecified Status: Acute (7) Diabetic ketoacidosis: Code(s): E11.10 - Type 2 diabetes mellitus with ketoacidosis without coma Status: Acute (8) Insulin dependent diabetes mellitus: Status: Acute (9) Hypertension: Code(s): I10 - Essential (primary) hypertension Status: Acute (10) Dyslipidemia: Code(s): E78.5 - Hyperlipidemia, unspecified Status: Acute (11) DKA (diabetic ketoacidosis): Qualifiers: Diabetes mellitus complication detail: without coma Diabetes mellitus type: other specified (including ZI) Qualified Code(s): E13.10 - Other specified diabetes
== END 2021-06-11 18:16 | disposition home health service (06) | DRG 638 ==
LOC: ANHED 15:38 → ANHICU 21:06 → ANHIMU 06-09 09:41 → ANH3MED 06-10 18:41
PROVIDERS: Internal Medicine; Physician Assistant; Admitting Provider Hospitalist; Emergency Provider Emergency Medicine; PCP Family Medicine; Visit Provider Hospitalist
DX: E11.10 Type 2 diabetes mellitus with ketoacidosis without coma (principal); N17.9 Acute kidney failure, unspecified; Z20.822 Contact with and (suspected) exposure to COVID-19; D72.829 Elevated white blood cell count, unspecified; R79.89 Other specified abnormal findings of blood chemistry; E86.0 Dehydration; I10 Essential (primary) hypertension; E78.00 Pure hypercholesterolemia, unspecified; Z91.14 Patient's other noncompliance with medication regimen
CPT/HCPCS: 36415; 36600; 71046; 71275; 80048; 80053; 81001; 82010; 82375; 82805; 82948; 83036; 83050; 83605; 83690; 83735; 83880; 84439; 84443; 84480; 84484; 85025; 85610; 85730; 86140; 87040; 93005; 96361; 96374; 96375; 99285; A9270; C9803; J1650; J1815; J2405; J2543; J3480; J7030; J7120; Q9967; U0003; U0005

== ENCOUNTER 2023-07-26 14:08 | Outpatient (CLI) | payer MEDICARE, SELFPAY ==
--- NOTE | ~2023-07-26 | XR_ITS ---
EXAMINATION: XR lumbar spine 2-3V DATE: 07/26/2023 14:35 INDICATION: Low back pain TECHNIQUE: Anteroposterior and lateral views of the lumbar spine, and cone-down lateral view of the l umbosacral junction were obtained. COMPARISON: None. FINDINGS: Bone alignment is normal. There is no fracture. There is severe loss of intervertebral disc space height at L4-5 and moderate loss of disc space height at L3-4. The vertebral body heights are maintained. Small degenerative osteophytes project from the anterior endplates of multiple vertebral bodies. There is severe facet joint osteoarthritis at L4-5 and L5-S1. There is calcified atherosclero sis of the aorta and many of the other arteries. The visualized lung bases are clear. IMPRESSION: 1. Severe lumbar spondylosis at L4-5. Reviewed, dictated and finalized at location F. REPAIRER CUSTOM
== END 2023-07-26 14:09 | disposition home or self-care (01) ==
PROVIDERS: PCP Physician Assistant; Visit Provider Physician Assistant
DX: M47.896 Other spondylosis, lumbar region (principal)
CPT/HCPCS: 72100

== ENCOUNTER 2023-10-30 01:30 | Emergency (ER) | payer MEDICARE, SELFPAY ==
--- NOTE | ~2023-10-30 | XR_ITS ---
Portable chest x-ray Comparison: 06/08/2021 Clinical History: Chest pain Findings: Lungs are clear, without focal consolidation or pleural effusion. Cardiomediastinal silho uette is stable. Bones and soft tissues are unremarkable. Impression: Clear lungs. Reviewed, dictated and finalized at location . Impression: Clear lungs.
--- NOTE | ~2023-10-30 | CT_ITS ---
Clinical Indication: Shortness of breath, chest pain CT Scan of the Chest with Contrast: Technique: Contiguous sections were acquired throughout the chest after intravenous administration of 100 cc of Omnipaque 350. Dose reduction technique was used on this scan by utilizing automated expos ure control and iterative reconstruction technique. The dose-length product (DLP) was 505.13 mGy-cm. COMPARISON: 06/08/2021 Findings: There is no evidence of any significant mediastinal, hilar or axillary lymphadenopathy. No central pu lmonary embolus seen. There is no evidence of aortic dissection or aneurysm. There is no evidence of pleural or pericardial effusion. There is a region of airspace consolidation left lower lobe, compatible with pneumonia. There are sca ttered patchy more focal areas of mild groundglass opacity as well as scattered tree-in-bud opacities throughout the remainder of the lungs. Images through the upper abdomen reveal no abnormalities. Impression: Patchy pneumonia and small airways infection throughout the lungs, with the largest area of consolida tion at the left lower lobe. No central pulmonary embolus identified. Reviewed, dictated and finalized at [facility]. Impression: Patchy pneumonia and small airways infection throughout the lungs, with the lar gest area of consolidation at the left lower lobe. No central pulmonary embolus identified.
--- NOTE | 2023-10-30 01:30 | ECG_ITS ---
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 Measurements Intervals [place] Rate: 98 P: 82 MT: 166 QRS: -74 QRSD: 145 T: 93 QT: 398 QTc: 509 Interpretive Statements SINUS RHYTHM MARKED LEFT AXIS DEVIATION [QRS AXIS < -30] RIGHT BUNDLE BRANCH BLOCK LEFT ANTERIOR SUPERIOR HEMIBLOCK ABNORMAL ECG No previous ECG available for comparison Electronically Signed On 10-30-2023 07:36:02 CDT by Anthony Higuera M.D.
[2023-10-30 01:31] VITALS: BP 145/83; PULSE 116; RESP 24; TEMP 36.8; O2SAT 92
[2023-10-30 03:19] VITALS: BP 128/69; PULSE 109; RESP 24; O2SAT 92
--- NOTE | 2023-10-30 03:22 | ED.CHESTPAIN ---
HPI - Chest Pain General Chief Complaint: Chest Pain Stated Complaint: cp/sob History of Present Illness HPI narrative: Patient is a 63-year-old who presents to the emergency department this morning complaining of chest pain that started around 9:00 p.m. last. Patient states that the pain is substernal and does not radiate. He admits to history of coronary artery disease. He is currently denying any sharp stabbing chest pain, and is asking for food and. He denies any shortness of breath, any nausea or vomiting, any abdominal pain, dysuria or hematuria. Patient also denies any fevers or chills at home. No additional symptoms or concerns at this time. Related Data Home Medications Medication Instructions Recorded Confirmed atorvastatin 20 mg tablet (Lipitor) 20 mg PO DAILY 06/21/19 11/28/22 blood sugar diagnostic (Contour 06/21/19 11/28/22 Next Test Strips) dapagliflozin propanediol 10 mg 10 mg PO DAILY 06/21/19 11/28/22 tablet (Farxiga) fenofibrate 160 mg tablet 160 mg PO DAILY 06/21/19 11/28/22 glimepiride 1 mg tablet (Amaryl) 1 mg PO DAILY 06/21/19 11/28/22 lisinopril 10 mg tablet 10 mg PO DAILY 11/28/22 11/28/22 Allergies Allergy/AdvReac Type Severity Reaction Status Date / Time No Known Allergies Allergy Verified 10/30/23 03:17 Review of Systems Review of Systems: All systems are reviewed and are negative unless stated otherwise in the HPI. 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 He is on disability. Smokes marijuana and drinks alcohol in moderation. Denies tobacco use. He designates his mother, Carleen Arevalo, as his surrogate decision maker. Code status: Full code. Smoking status: Former smoker Alcohol intake: never Substance use: never Lack of Transportation: No Lack of Food: Never True Current Housing: I Have Housing Concerned About Future Housing: No Difficulty Paying Gas/Electric Bills: No Difficulty Paying for Meds: No Currently Unemployed: No Education: High School Diploma/GED Difficulty w/ Childcare or Family Care: No Living arrangements: with family Occupation/Education: unemployed Gender identity (if verbalized by the patient): Male Sexual Orientation (if Verbalized by the Patient): Straight or Heterosexual Spiritual care concerns: No Exam Narrative: General: Alert, awake, afebrile, in no acute distress. HEENT: PERRL, no rhinorrhea, no post nasal drip, oropharynx clear. Cardiovascular: Tachycardic with regular rhythm, no murmurs, rubs or gallops, no peripheral edema. Respiratory: Clear to auscultation bilaterally, tachypnea, no wheezing, no rhonchi, no rubs, no respiratory distress. Abdomen: Soft, nontender, nondistended, no rebound, no guarding, no peritoneal signs. Musculoskeletal: No joint swelling or deformity, normal muscle tone. Skin: No rashes or petechia, no signs of infection. Neurological: Alert and oriented to person, place, and time. Follows all commands. No focal deficits, speech is clear and fluent. Course Vital Signs Vital signs: Vital Signs Temperature 98.3 F 10/30/23 01:31 Pu
--- NOTE | 2023-10-30 03:25 | PC.NURSE ---
0325 324mg chewable baby asa given PO. Med is unable to scan due to MAR not pulling up.
[2023-10-30 03:26] VITALS: O2SAT 92
[2023-10-30 03:30] VITALS: O2SAT 92
[2023-10-30 03:31] LABS: Alanine Aminotransferase 19 U/L (6-50); Albumin Level 4.8 g/dL (3.5-5.1); Alkaline Phosphatase 62 U/L (38-126); Anion Gap 23 mmol/L (4-12); Aspartate Amino Transferase 24 U/L (17-59); Bilirubin,Total 0.7 mg/dL (0.2-1.3); Blood Urea Nitrogen 20 mg/dL (9-20); Calcium 9.4 mg/dL (8.4-10.2); Carbon Dioxide 13 mmol/L (22-30); Chloride 102 mmol/L (98-107); Estimated CRCL calculation 88 ml/min; Estimated Glomerular Filt Rate > 60; Glucose 151 mg/dL (65-110); Magnesium 1.6 mg/dL (1.6-2.3); Sodium 138 mmol/L (137-145); Troponin I < 0.012 ng/mL (0.000-0.034)
[2023-10-30 03:32] LABS: Basophils Absolute Auto 0.1 K/mm3 (0.0-0.1); Basophils Percent Auto 0.6 % (0.2-1.2); Eosinophils Percent Auto 0.2 % (0-4.4); Hematocrit 45.4 % (42.0-52.0); Hemoglobin 14.6 g/dL (14.0-18.0); Immature Granulocyte Absolute 0.03 K/mm3 (0.00-0.031); Immature Granulocyte Percent A 0.2 % (0-0.5); Lymphocytes Absolute Auto 1.23 K/mm3 (0.9-3.2); Lymphocytes Percent Auto 9.8 % (18.3-44.2); Mean Corpuscular HGB Conc 32.2 g/dl (32-36); Mean Corpuscular Volume 90.3 fl (80-100); Monocytes Absolute Auto 0.9 K/mm3 (0.1-0.6); Monocytes Percent Auto 6.9 % (2.6-8.5); Neutrophils Absolute Auto 10.3 K/mm3 (1.3-6.7); Neutrophils Percent Auto 82.3 % (45.5-73.1); Platelet Count Result 279 k/mm3 (150-375); Red Blood Count 5.03 M/mm3 (4.6-6.20); Red Cell Distribution Width 12.4 % (11.5-14.5); White Blood Count 12.5 K/mm3 (4.5-10.0)
[2023-10-30] MEDS: ASPIRIN 81 MG CHEWABLE TABLET 324 MG PO (03:35)
[2023-10-30 03:51] LABS: NT Pro B Type Natriuretic Pept 40 pg/mL (19.9-100)
[2023-10-30] MEDS: SODIUM CHLORIDE 0.9% IV 1,000 ML 999 ML IV CONT (04:04)
[2023-10-30 04:05] LABS: INR 1.1; Partial Thromboplastin Time 27.1 Seconds (22.3-36.8); Prothrombin Time 14.3 Seconds (11.1-14.7)
--- NOTE | 2023-10-30 04:57 | ECG_ITS ---
[facility] [address] Test Date: 2023-10-30 Pat Name: Stewart Arevalo Department: Room: Gender: M Industrial Engineering: : 1960 Requested By: Sheri Rodriguez Order Number: [id number] Sae MD: Anthony Higuera M.D. Measurements Intervals [place] Rate: 115 P: 82 ME: 160 QRS: -76 QRSD: 141 T: 92 QT: 364 QTc: 504 Interpretive Statements SINUS TACHYCARDIA RIGHT BUNDLE BRANCH BLOCK [120+ ms QRS DURATION, UPRIGHT V1, 40+ ms S IN I/aVL/V4/V5/V6] LEFT ANTERIOR FASCICULAR BLOCK LEFT VENTRICULAR HYPERTROPHY AND ST-T CHANGE [VOLTAGE CRITERIA PLUS ST/T ABNORMALITY] ABNORMAL ECG No previous ECG available for comparison Electronically Signed On 10-30-2023 14:45:31 CDT by Anthony Higuera M.D.
[2023-10-30 05:04] VITALS: BP 133/79; PULSE 101; RESP 21; O2SAT 93
[2023-10-30 05:30] LABS: Troponin I < 0.012 ng/mL (0.000-0.034)
--- NOTE | 2023-10-30 05:40 | PC.NURSE ---
Patient ambulated to the bathroom and back to his room with a steady unassisted gait.
[2023-10-30 06:15] VITALS: BP 139/45; PULSE 95; RESP 22; O2SAT 94
== END 2023-10-30 06:16 | disposition home or self-care (01) ==
PROVIDERS: Emergency Provider Emergency Medicine; PCP Physician Assistant
DX: J18.9 Pneumonia, unspecified organism (principal); R07.9 Chest pain, unspecified; I25.10 Atherosclerotic heart disease of native coronary artery without angina pectoris; I10 Essential (primary) hypertension; Z79.4 Long term (current) use of insulin; E78.2 Mixed hyperlipidemia; E11.9 Type 2 diabetes mellitus without complications
CPT/HCPCS: 36415; 71045; 71275; 80053; 83735; 83880; 84484; 85025; 85610; 85730; 93005; 96360; 99284; A9270; J7030; Q9967

== ENCOUNTER 2025-02-05 08:35 | Observation (INO) | payer MEDICARE, SELFPAY ==
--- OUTSIDE RECORDS SUMMARY | 2024-07-18 06:20 | XMS_ITS ---
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 Binding Cementer French Cord Name Role Phone RUDI TORRES Unavailable [phone] Chloe Herrera Unavailable Unavailable REASON FOR VISIT *General care Encounters Encounter Location Date Provider Diagnosis [facility] [address] [place], [place] [id number] 07/18/2024 RUDI TORRES Plan Of Treatment No Information Progress Notes * Stewart AMAYADOB:1960 (64 yo M)Acc No.[id number]:07/18/2024 Patient: Stewart BEARD Provider: Jesus Alberto Torres DPM :1960 A ge:64 Y S ex:Male Date:07/18/2024 Address:[address] [place], [place] [id number] Subjective: * Chief Complaints: * 1 . *General care. * Medical History: Objective: * Vitals: Assessment: Plan: * Treatment: * Billing Information: * Visit Code: * Procedure Codes: * Electronic signature of RUDI TORRES DPM on 02/05/2025 at 09:08 AM CDT Sign off status: Pending * Provider: Jesus Alberto Torres DPM Date: 0 07/18/2024 Generated for Alexanderi krystal/Betsy/eTransmitting on: 0 02/05/2025 09:08 AM CDT
[2025-02-05] VITALS (15 sets, daily range): BP systolic 121–169; BP diastolic 67–90; PULSE 79–109; RESP 15–27; TEMP 36.4–37.4; O2SAT 92–100
--- NOTE | ~2025-02-05 | XR_ITS ---
Examination: XR chest 1V portable Clinical History: leukocytosis Comparison: Chest x-ray 10/30/2023 Technique: Portable AP Findings: Heart size normal. Lungs clear. No acute bony abnormality. IMPRESSION: 1. No acute cardiopulmonary findings given portable technique. Reviewed, dictated and finalized at location R.
--- NOTE | 2025-02-05 08:42 | ECG_ITS ---
Test Date: 2025-02-05 08:42:35 Measurements Intervals [place] Rate: 106 P: 69 MA: 192 QRS: -76 QRSD: 143 T: 83 QT: 365 QTc: 486 Interpretive Statements SINUS TACHYCARDIA POSSIBLE LEFT ATRIAL ENLARGEMENT [-0.1mV P-WAVE IN V1/V2] RIGHT BUNDLE BRANCH BLOCK [120+ ms QRS DURATION, UPRIGHT V1, 40+ ms S IN I/aVL/V4/V5/V6] LEFT ANTERIOR FASCICULAR BLOCK [QRS AXIS <= -45, QR IN I, RS IN II] LEFT VENTRICULAR HYPERTROPHY AND ST-T CHANGE [VOLTAGE CRITERIA PLUS ST/T ABNORMALITY] ABNORMAL ECG Compared to ECG 10/30/2023 05:01:16 NO SIGNIFICANT DIFFERENCE Electronically Signed On 02-05-2025 16:17:36 CDT by Anthony Higuera M.D.
--- NOTE | 2025-02-05 08:45 | ED_ITS ---
HPI - General Adult General Chief complaint: Nausea/Vomiting/Diarrhea Stated complaint: N/V History of Present Illness HPI narrative: 64-year-old male that lives at home with his daughter presented to the emergency department for evaluation for elevated blood sugars. Patient is a type 2 diabetic and does have a Dexcom and insulin pump. Family noticed that the patient's Dexcom was reading 41 for the majority of the night. They did check his blood sugar manually was found to be elevated. They called EMS due to the patient having some nausea vomiting and abdominal pain. Patient did get a blood sugar checked by EMS of greater than 500. Patient was started on lactated Ringer's by EMS. Upon arrival to the emergency department patient denies any chest pain abdominal pain nausea or vomiting. Patient is well- appearing at time of evaluation. patient does have a past medical history of hypertension, high cholesterol, emphysema, type 1 diabetes Related Data Home Medications ?Medication ?Instructions ?Recorded ?Confirmed ?Last Taken ?Type atorvastatin 20 mg tablet (Lipitor) 20 mg PO DAILY 02/05/25 02/04/25 History blood sugar diagnostic (Contour 06/21/19 02/05/25 Unk nown History Next Test Strips) fenofibrate 160 mg tablet 160 mg PO DAILY 06/21/1903/2202/04/25 History lisinopril 10 mg tablet 10 mg PO DAILY 11/28/2201/2702/04/25 History Held on 02/05/25. Instructions: Patient no longer taking Allergies Allergy/AdvReac Type Severity Reaction Status Date / Time No Known Allergies Allergy Verified 10/30/23 03:17 Review of Systems 2 Review of Systems: All systems reviewed & are unremarkable except as noted in HPI and below PMFSH Past Medical History Medical History (Updated 02/05/25 @ 14:07 by Trina Voss APRN) Type 1 diabetes diagnosed at [facility] via antibody testing per patient's daughter Opioid use, unspecified, uncomplicated Emphysema, unspecified Atherosclerosis of [place] coronary artery of [place] heart without angina pectoris Mixed hyperlipidemia longterm (current) use of insulin Other intervertebral disc degeneration, lumbar region Elevated lactic acid level Hypertension Chronic back pain Surgical History Surgical History No history of major surgery within 1 month Family History Family History Other Diabetes mellitus Heart disease Hypertension Social History Social History Social History: The patient lives in [place] with his mother. He is on disability. Smokes marijuana and drinks alcohol in moderation. Denies tobacco use. He designates his mother, Carleen Arevalo, as his surrogate decision maker. Code status: Full code. Smoking status: Former smoker Tobacco type: cigarettes Smoking end date: 01/30/08 Alcohol intake: never Substance use: never Substance use type: marijuana Lack of Transportation: No Lack of Food: Never True Current Housing: I Have Housing Concerned About Future Housing: No Difficulty Paying Gas/Electric Bills: No Difficulty Paying for Meds: No Currently Unemployed: YES Education: Decline to Answer Difficulty w/ Childcare or Family Care: No Living arrangements: with family Occupation/Education: unemployed Gender identity (if verbalized by the patient): Male Sexual Orientation (if Verbalized by the Patient): Straight or Heterosexual Spiritual care concerns: No Exam 2 Narrative: APPEARANCE: Well appearing, no pain, no distress, well-nourished. HEAD: normocephalic, atraumatic. EYES: PERRLA/EOMI, conjunctivae clear. NOSE: Normal no drainage EARS:TMS clear with good light reflex. THROAT: Pharynx clear, no exudate. NECK: Supple. No adenopathy, no masses. RESPIRATORY: Airway patent, respirations nonlabored. Clear to auscultation bilaterally, no rales, rhonchi, wheezing. CARDIOVASCULAR: Regular rate and rhythm without murmurs rubs or gallops. ABDOMINAL: Soft, nontender, nondistended, normal bowel sounds MUSCULOSKELETAL: Moves all extremities. Strength/ROM intact, No edema, No calf tenderness. NEURO: Alert. Cranial nerves II through XII intact. Good gait. Good coordination SKIN: Warm, dry. Normal Color Course Vital Signs Vital signs: Vital Signs Temperature 97.6 F 02/05/25 08:30 Pulse Rate 106 H 02/05/25 08:30 Respiratory Rate 20 02/05/25 08:30 Blood Pressure 137/71 02/05/25 08:30 Pulse Oximetry 94 02/05/25 08:30 Oxygen Delivery Room Air 02/05/25 08:30 Temperature 98.2 F 02/05/25 16:00 Pulse Rate 90 02/05/25 16:00 Respiratory Rate 22 H 02/05/25 16:00 Blood Pressure 144/72 H 02/05/25 16:00 Pulse Oximetry 92 02/05/25 16:00 Oxygen Delivery Room Air 02/05/25 16:00 Medical Decision Making MDM Narrative Medical decision making narrative: 64-year-old male presents to the emergency department for evaluation for hyperglycemia. patient was treated with 2 L of lactated Ringer's and started on insulin bolus of 8 units. Patient is currently afebrile but does have a leukocytosis 15.8 with hemoglobin 13.1. Patient has a blood glucose of 576 lactic acid of 2.2 creatinine is 0.74 and gap of 15 potassium 4.7. Patient does have a beta hydroxybutyrate of 3.07. No evidence of urinary tract infection on the urinalysis and chest x-ray shows no acute cardiopulmonary mallet. Discussed the case with the office administration instructor and patient was accepted to the ICU. I discussed case with the hospitalist patient was accepted for admission. Patient was updated on the results of the workup and plan for admission and reason for going to the ICU. All questions concerns were addressed patient was well-appearing at time of admission. Critical Care Procedure Note Authorized and Performed by: Vj Cooper Total critical care time: Approximately 36 minutes Due to a high probability of clinically significant, life threatening deterioration, the patient required my highest level of preparedness to intervene emergently and I personally spent this critical care time directly and personally managing the patient. This critical care time included obtaining a history; examining the patient; pulse oximetry; ordering and review of studies; arranging urgent treatment with development of a management plan; evaluation of patient's response to treatment; frequent reassessment; and, discussions with other providers. This critical care time was performed to assess and manage the high probability of imminent, life-threatening deterioration that could result in multi-organ failure. It was exclusive of separately billable procedures and treating other patients and teaching time. Please see MDM section and the rest of the note for further information on patient assessment and treatment. Differential Diagnosis Differential Diagnosis: COVID, RSV, influenza, pneumonia, UTI, medication noncompliance, device malfunction, hyperglycemia, DKA Vital Signs Vital Signs: Vital Signs Temperature 97.6 F 02/05/25 08:30 Pulse Rate 106 H 02/05/25 08:30 Respiratory Rate 20 02/05/25 08:30 Blood Pressure 137/71 02/05/25 08:30 Pulse Oximetry 94 02/05/25 08:30 Oxygen Delivery Room Air 02/05/25 08:30 Temperature 98.2 F 02/05/25 16:00 Pulse Rate 90 02/05/25 16:00 Respiratory Rate 22 H 02/05/25 16:00 Blood Pressure 144/72 H 02/05/25 16:00 Pulse Oximetry 92 02/05/25 16:00 Oxygen Delivery Room Air 02/05/25 16:00 Lab Data Lab results reviewed: Yes I reviewed the patient's lab results. 02/05/25 08:57 02/05/25 14:28 Labs: Lab Results 02/05/25 02/05/25 02/05/25 Range/Units 08:47 08:57 09:52 WBC 15.8 H (4.5-10.0) K/mm3 RBC 4.55 L (4.6-6.20) M/mm3 Hgb 13.1 L (14.0-18.0) g/dL Hct 40.6 L (42.0-52.0) % MCV 89.2 (80-100) fl MCH 28.8 (26-34) pg MCHC 32.3 (32-36) g/dl RDW 12.6 (11.5-14.5) % Plt Count 292 (150-375) k/mm3 MPV 8.8 (7.4-10.4) fl Immature Gran % (Auto) 0.7 H (0-0.5) % Neut % (Auto) 84.2 H (45.5-73.1) % Lymph % (Auto) 8.0 L (18.3-44.2) % [place] % (Auto) 4.5 (2.6-8.5) % Eos % (Auto) 1.5 (0-4.4) % Baso % (Auto) 1.1 (0.2-1.2) % Lymph # (Auto) 1.26 (0.9-3.2) K/mm3 [place] # (Auto) 0.7 H (0.1-0.6) K/mm3 Eos # (Auto) 0.2 (0-0.3) K/mm3 Baso # (Auto) 0.2 H (0.0-0.1) K/mm3 Abs Immat Gran (auto) 0.11 H (0.00-0.031) K/mm3 Absolute Neuts (auto) 13.3 H (1.3-6.7) K/mm3 Absolute Nucleated RBC 0.000 (0.0-0.012) K/mm3 Nucleated RBC % 0.0 (0.0-0.2) % Sodium 135 L (137-145) mmol/L Potassium 4.7 (3.4-5.0) mmol/L Chloride 98 (98-107) mmol/L Carbon Dioxide 22 (22-30) mmol/L Anion Gap 15 H (4-12) mmol/L BUN 23 H (9-20) mg/dL Creatinine 0.74 (0.7-1.3) mg/dL Estim Creat Clear Calc 82 ml/min Estimated GFR > 60 (59 - ) Glucose 576 H* (65-110) mg/dL POC Capillary Glucose > 500 H* (65-105) mg/dl Hemoglobin A1c 8.3 H (<5.7) % Lactic Acid 2.2 H (0.7-2.0) mmol/L Calcium 9.2 (8.4-10.2) mg/dL Phosphorus 3.4 (2.5-4.5) mg/dL Total Bilirubin 0.7 (0.2-1.3) mg/dL AST 26 (17-59) U/L ALT 22 (6-50) U/L Alkaline Phosphatase 84 (38-126) U/L Total Protein 7.1 (6.3-8.2) g/dL Albumin 4.2 (3.5-5.1) g/dL Lipase 40 (23-300) U/L Beta-Hydroxybutyrate/Acetoacetate 3.07 H (0.02-0.27) mmol/L Urine Color Yellow (Yellow) Urine Appearance Clear (Clear) Urine pH 5.0 (5.0-9.0) Ur Specific [place] 1.026 (1.001-1.035) Urine Protein Negative (Negative) mg/dL Urine Glucose (UA) 3+ H (Negative) mg/dL Urine Ketones 2+ H (Negative) mg/dL Ur Blood (Man) Negative (Negative) Urine Nitrate Negative (Negative) Urine Bilirubin Negative (Negative) Urine Urobilinogen 0.2 (<2.0) mg/dL Leukocyte Esterase Rfl Negative (Negative) ABIGAIL/UL Imaging Data Radiologist's impression: Impressions Chest X-Ray 02/05/25 10:00 IMPRESSION: 1. No acute cardiopulmonary findings given portable technique. ECG Data EKG #1: EKG Interpretation: tachycardia, sinus rhythm, no ectopy, non-specific ST changes, RBBB and left axis Critical Care Time Critical Care Time Critical Care Time: Yes Total Critical Care Time: 36 Discharge Plan Discharge Clinical Impression: Acute hyperglycemia Diabetic keto-acidosis Qualifiers: Diabetes mellitus type: type 1 Diabetes mellitus complication detail: without coma Qualified Code(s): E10.10 - Type 1 diabetes mellitus with ketoacidosis without coma Patient Disposition: Still a Patient Condition: Critical
[2025-02-05] MEDS: LACTATED RINGERS 1,000 ML 999 ML IV CONT ×3 (08:49→11:58)
--- OUTSIDE RECORDS SUMMARY | 2025-02-05 09:07 | XMS_ITS | Patient Health Record ---
Author Organization [facility] Address [address] [facility] [address] [place], [place] [id number] Care Team Providers Care Biochemical Engineer Name Role Phone RUDI WALLS Unavailable [phone] Chloe Herrera Unavailable Unavailable Allergies No Known Allergies Reason For Referral No Information Social History Tobacco Use: Social History Observation Description Date Details (start date - stop date) Former Smoker NA - NA Tobacco Control (Standard) Question Answer Notes Tobacco use: Former smoker Vital Signs Height-cm 172.72 cm 02/15/2024 Weight-kg 83.01 kg 02/15/2024 Height 68 in 02/15/2024 Weight 183 lbs 02/15/2024 BMI 27.82 kg/m2 02/15/2024 Encounters Encounter Location Date Provider Diagnosis [facility] [address] [place], [place] [id number] 02/15/2024 RUDI WALLS Fungal infection of nail B35.1 ; Pain in right toe(s) M79.674 ; Pain in left toe(s) M79.675 and Atherosclerosis of [place] arteries of extremities with intermittent claudication, bilateral legs I70.213 [facility] [address] [place], [place] [id number] 05/09/2024 RUDI WALLS Fungal infection of nail B35.1 ; Pain in right toe(s) M79.674 ; Pain in left toe(s) M79.675 and Atherosclerosis of [place] arteries of extremities with intermittent claudication, bilateral legs I70.213 Assessments Encounter Date Diagnosis (ICD Code) Assessment Notes Treatment Notes Treatment Clinical Notes Section Notes 02/15/2024 Fungal infection of nail (ICD-10 - B35.1) Nails 1-5 Bilateral were debrided extensively with nail nippers and emery board, reducing length and girth to pink healthy tissue with any subungual debris and necrotic tissue removed 05/09/2024 Fungal infection of nail (ICD-10 - B35.1) Nails 1-5 Bilateral were debrided extensively with nail nippers and emery board, reducing length and girth to pink healthy tissue with any subungual debris and necrotic tissue removed 05/09/2024 Pain in right toe(s) (ICD-10 - M79.674) 02/15/2024 Pain in right toe(s) (ICD-10 - M79.674) 02/15/2024 Pain in left toe(s) (ICD-10 - M79.675) 05/09/2024 Pain in left toe(s) (ICD-10 - M79.675) 05/09/2024 Atherosclerosis of [place] arteries of extremities with intermittent claudication, bilateral legs (ICD-10 - I70.213) 02/15/2024 Atherosclerosis of [place] arteries of extremities with intermittent claudication, bilateral legs (ICD-10 - I70.213) Plan Of Treatment No Information Insurance Providers Payer Name Payer Address Payer Phone Subscriber Number Group Number Insured Name Patient Relationship to Insured Coverage Start Date Coverage End Date [facility] [address] [address] [place] [address] [id number] Stewart Arevalo Self - patient is the insured Medical (General) History Medical History History ICD Code neuropathy Leg/Feet cramps Diabetic hypertension
--- OUTSIDE RECORDS SUMMARY | 2025-02-05 09:08 | XMS_ITS | Clinical Summary ---
Author Organization [facility] Address [address] [place] [address] Phone Care Team Providers Care Drill Doctor Name Role Phone Taras Avilez MD Primary Care Provider Allergies No known active allergies Medications GLIMEPIRIDE ORAL Take by mouth. Active lisinopriL (PRINIVIL) 10 mg tablet Take 10 mg by mouth daily. Active dapagliflozin (Farxiga) 10 mg Tablet Take by mouth daily. Active atorvastatin (LIPITOR) 20 mg tablet Take 20 mg by mouth daily with supper. Active FENOFIBRATE ORAL Take by mouth. Active HYDROcodone-acet aminophen (NORCO) 7.5-325 mg Tablet Take 1 Tablet by mouth every 4 hours as needed for Pain, Moderate. 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 Pulse 59 07/27/2019 8:30 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 Temperature 36.5 C (97.7 F) 07/27/2019 7:48 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 Respiratory Rate 18 07/27/2019 8:30 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 Oxygen Saturation 93% 07/27/2019 8:30 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 Inhaled Oxygen Concentration - - Weight 77.1 kg (170 lb) 07/27/2019 5:14 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 Height 172.7 cm (5' 8) 07/27/2019 5:14 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 Body Mass Index 25.85 07/27/2019 5:14 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 Plan of Treatment Health Maintenance Due Date Last Done Comments DTAP/TDAP/TD VACCINES (1 - Tdap) 1977 COLORECTAL SCREENING 2003 Colorectal Cancer Screening 2003 FIT-DNA Q 3 years 2003 FIT/FOBT Q 1 year 2003 Flex Sig/CT Colonography Q 5 years 2003 PNEUMOCOCCAL VACCINE 50+ YEARS (1 of 1 - PCV) 05/14/20 08 ZOSTER VACCINE (1 of 2) 2008 RSV VACCINE (60+ or ) (1 - Risk 60-74 years 1-dose series) 2018 INFLUENZA VACCINE (#1) 2024 Insurance MEDICARE PART A AND B [place]ID [place] Care Teams Drill Doctor Relationship Specialty Start Date End Date Taras Avilez MD [address] [place] [phone] PCP - General Family Practice 07/27/19
[2025-02-05 09:10] LABS: Hematocrit 40.6 % (42.0-52.0); Hemoglobin 13.1 g/dL (14.0-18.0); Immature Granulocyte Percent A 0.7 % (0-0.5); Lymphocytes Absolute Auto 1.26 K/mm3 (0.9-3.2); Mean Corpuscular HGB Conc 32.3 g/dl (32-36); Mean Corpuscular Hemoglobin 28.8 pg (26-34); Mean Corpuscular Volume 89.2 fl (80-100); Nucleated Red Blood Cells Absolute Auto 0.000 K/mm3 (0.0-0.012); Nucleated Red Blood Cells Perc 0.0 % (0.0-0.2); Platelet Count Result 292 k/mm3 (150-375); Red Blood Count 4.55 M/mm3 (4.6-6.20); White Blood Count 15.8 K/mm3 (4.5-10.0)
[2025-02-05 09:25] LABS: Alanine Aminotransferase 22 U/L (6-50); Albumin Level 4.2 g/dL (3.5-5.1); Alkaline Phosphatase 84 U/L (38-126); Anion Gap 15 mmol/L (4-12); Aspartate Amino Transferase 26 U/L (17-59); Bilirubin,Total 0.7 mg/dL (0.2-1.3); Blood Urea Nitrogen 23 mg/dL (9-20); Calcium 9.2 mg/dL (8.4-10.2); Carbon Dioxide 22 mmol/L (22-30); Chloride 98 mmol/L (98-107); Estimated CRCL calculation 82 ml/min; Estimated Glomerular Filt Rate > 60; Glucose 576 mg/dL (65-110); Lipase 40 U/L (23-300); Potassium 4.7 mmol/L (3.4-5.0); Sodium 135 mmol/L (137-145); Total Protein 7.1 g/dL (6.3-8.2)
[2025-02-05 09:29] LABS: Beta-Hydroxybutyrate/Acetoace. 3.07 mmol/L (0.02-0.27)
[2025-02-05] MEDS: INSULIN HUMAN REGULAR (*BKC) 100 UNITS/ML 8 UNITS IV PUSH (09:42)
[2025-02-05 09:59] LABS: Add Urine Microscopic? NO; Appearance Urine Clear (Clear); Glucose Urine UA 3+ mg/dL (Negative); Leukocyte Esterase Ur Negative LEU/UL (Negative); Nitrate Urine Negative (Negative); Specific Grav Ur 1.026 (1.001-1.035)
[2025-02-05 11:06] LABS: Hemoglobin A1C 8.3 % (<5.7)
--- NOTE | 2025-02-05 11:29 | WPDCNINT ---
Assessment and Plan Assessment and plan (1) Diabetic keto-acidosis: Code(s): E11.10 - Type 2 diabetes mellitus with ketoacidosis without coma Status: Acute Assessment and Plan: Patient presented with hyperglycemia with blood sugars of 576, elevated beta hydroxybutyrate, UA showed ketones and glucose. No anion gap -patient was given 2 L IV fluid bolus in the ER and given a bolus of 8 units IV regular insulin x1 and transferred to the ICU for further management -repeat labs a revealed no anion gap, CO2 of 27. Blood sugars 391. Will give 5 units of regular insulin IV x1. Start Lantus 20 units daily, 1st dose now. -diabetic diet (2) Type 1 diabetes: Code(s): E10.9 - Type 1 diabetes mellitus without complications Status: Acute Assessment and Plan: Hemoglobin A1c is 8.3 this admission -patient does use a insulin pump at home, which was unfortunately not approximated to his scan so patient was not receiving any insulin. -patient only takes insulin via the insulin pump. -Has been OFF glimepiride, Farxiga, Lantus, mounjaro -patient has been using 33 units of basal insulin per day (3) Hypertension: Qualifiers: Hypertension type: primary hypertension Qualified Code(s): I10 - Essential (primary) hypertension Code(s): I10 - Essential (primary) hypertension Status: Acute Assessment and Plan: Will continue home lisinopril (4) Mixed hyperlipidemia: Code(s): E78.2 - Mixed hyperlipidemia Status: Acute Assessment and Plan: Will continue atorvastatin, fenofibrate Plan DVT prophylaxis: Lovenox Stress ulcer prophylaxis: Not indicated Nutrition: Diabetic and carb consistent diet Code Status: Full code Critical Care Time Spent: 44 minutes Due to a high probability of clinically significant, life threatening deterioration, the patient required my highest level of preparedness to intervene emergently and I personally spent this critical care time directly and personally managing the patient. This critical care time included obtaining a history; examining the patient; pulse oximetry; ordering and review of studies; arranging urgent treatment with development of a management plan; evaluation of patient's response to treatment; frequent reassessment; and discussions with other providers. It was exclusive of separately billable procedures and treating other patients and teaching time. Please see Assessment and Plan section and the rest of the note for further information on patient assessment and treatment This dictation may have been done utilizing a voice recognition system. Attempts have been made to correct errors. However, there may be uncorrected grammatical, spelling, and recognitions errors present. It Training Specialist Consult Note Consult date: 02/05/25 Reason for consult: Hyperglycemia, questionable mild DKA HPI: Stewart Arevalo is a 64 year old male with past medical history of hypertension, emphysema, chronic back pain, diabetes type 1 on insulin pump and Dexcom, hyperlipidemia, marijuana use, CAD presented the ED on 02/05/2025 with complains of elevated blood sugars. Patient lives by himself, has a Dexcom and his daughter gets notification. His dexcom read sugars of 41 last night, but he was awake, alert this morning a manual blood sugar was found to be elevated. EMS was called. Patient did have 1 episode of vomiting along with nausea and abdominal pain. Blood sugars checked by EMS was greater than 500. Patient was brought to the ED where received 2 L of IV fluid bolus, insulin bolus and transfer the ICU for further management. In the ER put in labs showed a WBC count of 15.8, hemoglobin 13.1, platelets of 292. Sodium 135, potassium 4.7, chloride 98, CO2 22, anion gap 15, BUN 23, creatinine 0.74, blood sugar 576, hemoglobin A1c 8.3, lactic acid 2.2, normal LFTs and bilirubin. Beta hydroxybutyrate 3.07. UA was positive for glucose and ketones. Chest x-ray: No acute cardiopulmonary finding Patient seen and examined upon arrival to the ICU, pleasant gentleman currently in no acute distress, denies any shortness of breath, chest pain, abdominal pain, nausea vomiting. States that he just had 1 episode of vomiting a overnight and sick to the stomach with nausea and abdominal pain which he denies at this time. Hemodynamically stable. He has had dexcom, an insulin pump was recently started 2 weeks ago which has controlled his blood sugars better. When his daughter checked on his insulin pump it was not approximated to the skin and had not given him any insulin. 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 He is on disability. Smokes marijuana and drinks alcohol in moderation. Denies tobacco use. He designates his mother, Carleen Arevalo, as his surrogate decision maker. Code status: Full code. Smoking status: Former smoker Alcohol intake: never Substance use: never Lack of Transportation: No Lack of Food: Never True Current Housing: I Have Housing Concerned About Future Housing: No Difficulty Paying Gas/Electric Bills: No Difficulty Paying for Meds: No Currently Unemployed: No Education: High School Diploma/GED Difficulty w/ Childcare or Family Care: No Living arrangements: with family Occupation/Education: unemployed Gender identity (if verbalized by the patient): Male Sexual Orientation (if Verbalized by the Patient): Straight or Heterosexual Spiritual care concerns: No Meds Home Medications and Allergies Home Medications ?Medication ?Instructions ?Recorded ?Confirmed ?Type atorvastatin 20 mg tablet (Lipitor) 20 mg PO DAILY 06/21/19 11/28/22 History blood sugar diagnostic (Contour 06/21/19 11/28/22 History Next Test Strips) dapagliflozin propanediol 10 mg 10 mg PO DAILY 06/21/19 11/28/22 History tablet (Farxiga) fenofibrate 160 mg tablet 160 mg PO DAILY 06/21/19 11/28/22 History glimepiride 1 mg tablet (Amaryl) 1 mg PO DAILY 06/21/19 11/28/22 History lisinopril 10 mg tablet 10 mg PO DAILY 11/28/22 11/28/22 History insulin glargine 100 unit/mL (3 42 unit (0.42 mL) subcut DAILY #15 05/11/23 Rx mL) subcutaneous pen (Lantus mL Solostar U-100 Insulin) albuterol sulfate 90 mcg/actuation 2 puff inhalation Q4H PRN 05/26/23 Rx aerosol inhaler shortness of breath or wheezing #8.5 grams hydrocodone 7.5 mg-acetaminophen 7.5 - 325 tablet PO BID PRN pain 06/02/23 Rx 325 mg tablet #60 tabs amoxicillin 875 mg-potassium 1 tablet PO Q12H 7 days #14 tabs 10/30/23 Rx clavulanate 125 mg tablet doxycycline hyclate 100 mg tablet 100 mg PO BID 7 days #14 tabs 10/30/23 Rx pen needle, diabetic 32 gauge x #100 ea 04/28/24 Rx /32 (BD Ultra-Fine Sharyn Pen Needle) blood sugar diagnostic (OneTouch #100 ea 08/04/24 Rx Verio test strips) Allergies Allergy/AdvReac Type Severity Reaction Status Date / Time No Known Allergies Allergy Verified 10/30/23 03:17 Vital Signs Vital Signs - 24 hr 02/05/25 08:30 02/05/25 09:02 02/05/25 09:03 Temperature 97.6 F Pulse Rate 106 H 106 H Respiratory Rate 20 20 Blood Pressure 137/71 163/79 H Pulse Oximetry 94 94 94 Oxygen Delivery Room Air Room Air 02/05/25 09:16 02/05/25 09:19 02/05/25 10:31 Temperature Pulse Rate 109 H 107 H 101 H Respiratory Rate 22 H 26 H Blood Pressure 158/74 H 169/80 H Pulse Oximetry 93 Oxygen Delivery 02/05/25 10:46 02/05/25 11:02 Temperature Pulse Rate 102 H 95 Respiratory Rate 26 H 15 Blood Pressure 156/82 H 148/73 H Pulse Oximetry 96 100 Oxygen Delivery Exam Narrative: General: Pleasant gentleman in no acute distress HEENT:? Dry oral mucosa, pupils are equal and reactive, sclera is clear Neck:? Supple Respiratory:? Clear to auscultation bilaterally, no wheezing, adequate air entry Cardiac:? S1-S2 normal, regular rate and rhythm Abdomen:? Soft, nontender, nondistended, normoactive bowel sounds Extremities:? No edema, palpable pedal pulses Neuro:? Patient is awake, alert, oriented, nonfocal Skin:? Warm and dry, no lesions noted Psych:? Normal mentation and affect Results Labs 02/05/25 08:57 02/05/25 08:57 Labs: Short CBC 02/05/25 Range/Units 08:57 WBC 15.8 H (4.5-10.0) K/mm3 Hgb 13.1 L (14.0-18.0) g/dL Hct 40.6 L (42.0-52.0) % Plt Count 292 (150-375) k/mm3 BMP 02/05/25 08:57 Sodium 135 L Potassium 4.7 Chloride 98 Carbon Dioxide 22 BUN 23 H Creatinine 0.74 Glucose 576 H* Calcium 9.2 Liver Function 02/05/25 Range/Units 08:57 Total Bilirubin 0.7 (0.2-1.3) mg/dL AST 26 (17-59) U/L ALT 22 (6-50) U/L Alkaline Phosphatase 84 (38-126) U/L Albumin 4.2 (3.5-5.1) g/dL Urine 02/05/25 Range/Units 09:52 Urine Color Yellow (Yellow) Urine Appearance Clear (Clear) Urine pH 5.0 (5.0-9.0) Ur Specific [place] 1.026 (1.001-1.035) Urine Protein Negative (Negative) mg/dL Urine Glucose (UA) 3+ H (Negative) mg/dL Quality VTE Prophylaxis VTE prophylaxis: pharmacologic ordered Hospitalist MIPS Advance Care Plan I have confirmed that the patient's Advanced Care Plan is present, code status is documented, or surrogate decision maker is listed in patient medical record.: Yes Medication Reconciliation I have utilized all available resources to obtain, update and review the patients current medications (includes all prescriptions, OTC, herbals, cannabis, and nutritional supplements).: Yes
[2025-02-05 11:42] LABS: Anion Gap 11 mmol/L (4-12); Blood Urea Nitrogen 23 mg/dL (9-20); Calcium 9.3 mg/dL (8.4-10.2); Carbon Dioxide 27 mmol/L (22-30); Chloride 99 mmol/L (98-107); Estimated CRCL calculation 80 ml/min; Estimated Glomerular Filt Rate > 60; Glucose 391 mg/dL (65-110); Potassium 4.4 mmol/L (3.4-5.0); Sodium 137 mmol/L (137-145)
--- OUTSIDE RECORDS SUMMARY | 2025-02-05 11:48 | XMS_ITS | Clinical Summary ---
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 Gender Identity Not on file Sexual Orientation Not on file Last Filed Vital Signs Vital Sign Reading Time Taken Comments Blood Pressure 118/78 07/27/2019 8:30 PM SLITTER CREASER SLOTTER OPERATOR Pulse 59 07/27/2019 8:30 PM SLITTER CREASER SLOTTER OPERATOR Temperature 36.5 C (97.7 F) 07/27/2019 7:48 PM SLITTER CREASER SLOTTER OPERATOR Respiratory Rate 18 07/27/2019 8:30 PM SLITTER CREASER SLOTTER OPERATOR Oxygen Saturation 93% 07/27/2019 8:30 PM SLITTER CREASER SLOTTER OPERATOR Inhaled Oxygen Concentration - - Weight 77.1 kg (170 lb) 07/27/2019 5:14 PM SLITTER CREASER SLOTTER OPERATOR Height 172.7 cm (5' 8) 07/27/2019 5:14 PM SLITTER CREASER SLOTTER OPERATOR Body Mass Index 25.85 07/27/2019 5:14 PM SLITTER CREASER SLOTTER OPERATOR Plan of Treatment Health Maintenance Due Date [...] A AND B [place] Care Teams Retail Account Specialist Relationship Specialty Start Date End Date Taras Avilez MD [address] [place] [phone] PCP - General Family Practice 07/27/19
[2025-02-05] MEDS: INSULIN HUMAN REGULAR (*BKC) 100 UNITS/ML IV PUSH (12:07)
[2025-02-05] MEDS: INSULIN GLARGINE (*BKC) 100 UNITS/ML 20 UNITS SUB-Q (12:07)
--- NOTE | 2025-02-05 12:54 | PC.NURSE ---
1105- This patient, Stewart Arevalo, was admitted to Intensive Care Unit-8. Patient/family oriented to hospital policies and general routines including ID bracelet, bed and alarms, visiting hours, pain management, procedures, bathroom and other care routines, personal items, smoking policy, room service/diet, and visiting hours. Information on how to activate the Rapid Response Team has been discussed. Patient/Family are encouraged to report perceived risks to care and to ask questions if they do not understand what they are told or what they should do.
--- NOTE | 2025-02-05 13:00 | PM.IMHP ---
H&P: HPI History of Present Illness Date/Time: 02/05/25 13:00 Chief Complaint: Nausea, Vomiting, Diarrhea Narrative: 64 y/o M with PMH hypertension, emphysema, chronic back pain, diabetes type 1 on insulin pump and Dexcom, hyperlipidemia, marijuana use, and CAD presents here with nausea and vomiting. The patient presents here from home via EMS on 02/05 for further evaluation of nausea and vomiting. HPI obtained through patient report, patient's daughter report, and chart review. He reports onset last night. He has a past medical history significant for type 1 diabetes, currently has a Dexcom and insulin pump in place. Per the patient's daughter, she received an alert that the patient's glucose was 41 last night, however the patient remained awake and orientated. Patient then checked a manual blood sugar this morning which showed his sugar to be significantly elevated. He reports associated nausea with 1 episode of vomiting and abdominal pain he describes as achy/diffuse. This prompted the patient to call EMS, upon their arrival the patient's blood sugar was found to be 595. Upon arrival to the emergency department, the patient's insulin pump was inspected and appeared to be turned off/not injecting quickly and not approximated to the skin. Insulin pump had been placed 2 weeks ago which he reports has previously been controlling his blood sugars well. The patient currently reports he is feeling significantly better since he has received fluids and insulin. Last episode of DKA was a few weeks ago where he was admitted to [facility]. Patient reports he was in a coma for multiple days, underwent testing and antibodies showed patient was a Type 1 DM, originally believed to be DM2. Initial VS at presentation: 97.6? F, HR 106, R 20, 137/71, and 94% on RA. ED workup showed: WBC 15.8, hemoglobin 13.1, sodium 135, creatinine 0.74 and GFR >60, glucose 576, A1c 8.3%, lactic 2.2, beta hydroxy 3.07. CXR showed no acute cardiopulmonary findings. UA showed 3+ glucose and 2+ ketones otherwise unremarkable. 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 He is on disability. Smokes marijuana and drinks alcohol in moderation. Denies tobacco use. He designates his mother, Carleen Arevalo, as his surrogate decision maker. Code status: Full code. Smoking status: Former smoker Tobacco type: cigarettes Smoking end date: 01/30/08 Alcohol intake: never Substance use: never Substance use type: marijuana Lack of Transportation: No Lack of Food: Never True Current Housing: I Have Housing Concerned About Future Housing: No Difficulty Paying Gas/Electric Bills: No Difficulty Paying for Meds: No Currently Unemployed: YES Education: Decline to Answer Difficulty w/ Childcare or Family Care: No Living arrangements: with family Occupation/Education: unemployed Gender identity (if verbalized by the patient): Male Sexual Orientation (if Verbalized by the Patient): Straight or Heterosexual Spiritual care concerns: No Meds Home Medications and Allergies Home Medications ?Medication ?Instructions ?Recorded ?Confirmed ?Type atorvastatin 20 mg tablet (Lipitor) 20 mg PO DAILY 06/21/19 02/05/25 History blood sugar diagnostic (Contour 06/21/19 02/05/25 History Next Test Strips) fenofibrate 160 mg tablet 160 mg PO DAILY 06/21/19 02/05/25 History lisinopril 10 mg tablet 10 mg PO DAILY 11/28/22 02/05/25 History Held on 02/05/25. Instructions: Patient no longer taking insulin glargine 100 unit/mL (3 42 unit (0.42 mL) subcut DAILY #15 05/11/23 02/05/25 Rx mL) subcutaneous pen (Lantus mL Solostar U-100 Insulin) albuterol sulfate 90 mcg/actuation 2 puff inhalation Q4H PRN 05/26/23 02/05/25 Rx aerosol inhaler shortness of breath or wheezing #8.5 grams hydrocodone 7.5 mg-acetaminophen 7.5 - 325 tablet PO BID PRN pain 06/02/23 02/05/25 Rx 325 mg tablet #60 tabs pen needle, diabetic 32 gauge x #100 ea 04/28/24 02/05/25 Rx 5/32 (BD Ultra-Fine Sharyn Pen Needle) blood sugar diagnostic (OneTouch #100 ea 08/04/24 02/05/25 Rx Verio test strips) Allergies Allergy/AdvReac Type Severity Reaction Status Date / Time No Known Allergies Allergy Verified 10/30/23 03:17 Vital Signs Vital Signs - 24 hr 02/05/25 08:30 02/05/25 09:02 02/05/25 09:03 Temperature 97.6 F Pulse Rate 106 H 106 H Respiratory Rate 20 20 Blood Pressure 137/71 163/79 H Pulse Oximetry 94 94 94 Oxygen Delivery Room Air Room Air 02/05/25 09:16 02/05/25 09:19 02/05/25 10:31 Temperature Pulse Rate 109 H 107 H 101 H Respiratory Rate 22 H 26 H Blood Pressure 158/74 H 169/80 H Pulse Oximetry 93 Oxygen Delivery 02/05/25 10:46 02/05/25 10:57 02/05/25 11:02 Temperature Pulse Rate 102 H 86 95 Respiratory Rate 26 H 15 Blood Pressure 156/82 H 130/69 148/73 H Pulse Oximetry 96 100 Oxygen Delivery Exam Const: General: comfortable and no acute distress Other: , male, elderly appearing, nontoxic appearance HENMT: Face/Nose/Sinus: Normal nares present Mouth: Yes moist mucous membranes Eyes: General: appearance normal, both eyes and all related structures Sclera: sclerae normal Pupils: Equal, round and reactive pupils present EOM: EOMs intact bilaterally Resp: Effort & Inspection: normal respiratory effort Auscultation: clear to auscultation bilaterally Cardio: Rate: regular rate Rhythm: regular rhythm Other: S1-S2 present without murmur, rub, ectopy GI: Other: Abdomen soft, nondistended, nontender. Normoactive bowel sounds in all quadrants. Skin: General skin exam: normal color and no rashes or lesions noted Wounds: no wounds Neuro: Speech: normal speech Motor exam (neuro): 5/5 motor strength present throughout Sensory Exam: normal sensation Other: A&O x4 Extrem: General: normal to inspection Psych: Mental Status: mental status grossly normal Affect: normal affect Other: Good insight and judgment, extremely pleasant H&P: Results Labs Labs: Short CBC 02/05/25 Range/Units 08:57 WBC 15.8 H (4.5-10.0) K/mm3 Hgb 13.1 L (14.0-18.0) g/dL Hct 40.6 L (42.0-52.0) % Plt Count 292 (150-375) k/mm3 BMP 02/05/25 02/05/25 08:57 11:18 Sodium 135 L 137 Potassium 4.7 4.4 Chloride 98 99 Carbon Dioxide 22 27 BUN 23 H 23 H Creatinine 0.74 0.76 Glucose 576 H* 391 H Calcium 9.2 9.3 Liver Function 02/05/25 Range/Units 08:57 Total Bilirubin 0.7 (0.2-1.3) mg/dL AST 26 (17-59) U/L ALT 22 (6-50) U/L Alkaline Phosphatase 84 (38-126) U/L Albumin 4.2 (3.5-5.1) g/dL Urine 02/05/25 Range/Units 09:52 Urine Color Yellow (Yellow) Urine Appearance Clear (Clear) Urine pH 5.0 (5.0-9.0) Ur Specific [place] 1.026 (1.001-1.035) Urine Protein Negative (Negative) mg/dL Urine Glucose (UA) 3+ H (Negative) mg/dL Assessment and Plan Assessment and plan (1) Diabetic keto-acidosis: Qualifiers: Diabetes mellitus complication detail: without coma Diabetes mellitus type: type 1 Qualified Code(s): E10.10 - Type 1 diabetes mellitus with ketoacidosis without coma Code(s): E11.10 - Type 2 diabetes mellitus with ketoacidosis without coma Status: Acute Assessment and Plan: The patient presented here with hyperglycemia with a blood sugar greater than 500. In DKA as evidence by a 2+ ketones in his urine and a beta hydroxy of 3.07. Anion gap 15. DKA likely precipitated by malfunction of insulin pump, pump not approximated to the skin and patient was not receiving any insulin. - history of type 1 diabetes, per daughter was diagnosed via antibody testing at [facility] - labs: initial (02/05) - A1C 8.3%, WBC 15.8, anion gap 15, potassium 4.7, glucose 576, lactic 2.2, beta hydroxy 3.07, CO2 22 repeat (02/05) - no anion gap, CO2 27, potassium 4.4, anion gap 11, glucose 391, lactic 2.1 - trend BMP Q4H, repeat Mag and Phos - DKA protocol initiated - IV fluids: given 2L in ED. given initial 1L in the ICU, maintenance fluids discontinued - diabetic diet -home medications: patient has been taken off glimepiride, farixga, lantus, mounhazel has been on 33u of basil insulin daily - riverine assault craft crewman consulted Given 5 units of regular insulin IV x1, started on Lantus 20 units daily with 1st dose today - lath hand consulted - climatology teacher consulted (2) Type 1 diabetes: Qualifiers: Diabetes mellitus complication detail: without coma Diabetes mellitus complication status: with ketoacidosis Qualified Code(s): E10.10 - Type 1 diabetes mellitus with ketoacidosis without coma Code(s): E10.9 - Type 1 diabetes mellitus without complications Status: Chronic Assessment and Plan: - see above (3) Mixed hyperlipidemia: Code(s): E78.2 - Mixed hyperlipidemia Status: Chronic Assessment and Plan: - continue atorvastatin and fenofibrate (4) Hypertension: Qualifiers: Hypertension type: primary hypertension Qualified Code(s): I10 - Essential (primary) hypertension Code(s): I10 - Essential (primary) hypertension Status: Chronic Assessment and Plan: - chronic, currently 129/75 - home medications: Reportedly on lisinopril 10 mg daily, however patient denies. Patient started on lisinopril 2.5 mg daily as his systolic was in the 140s. - monitor Plan Diet: Diabetic GI Prophylaxis: n/a DVT Prophylaxis: Lovenox IV fluids: 3L bolus Lines/Tubes: Peripheral IV Code Status: Full code Quality VTE Prophylaxis VTE prophylaxis: pharmacologic ordered Critical Care Time: I personally spent 35 minutes of direct patient care including (but not limited to) the physical examination, decision-making, bedside evaluation, review of medical records, review of labs and imaging, discussion with nursing staff and other providers for collaborative, critical care management of this patient. Hospitalist [facility] Advance Care Plan I have confirmed that the patient's Advanced Care Plan is present, code status is documented, or surrogate decision maker is listed in patient medical record.: Yes Medication Reconciliation I have utilized all available resources to obtain, update and review the patients current medications (includes all prescriptions, OTC, herbals, cannabis, and nutritional supplements).: Yes
[2025-02-05] MEDS: HYDROcodone/acetaminophen (*CRX) 7.5-325 MG TABLET 1 TAB PO ×2 (13:43→23:50)
[2025-02-05 14:51] LABS: Anion Gap 8 mmol/L (4-12); Blood Urea Nitrogen 21 mg/dL (9-20); Calcium 8.7 mg/dL (8.4-10.2); Carbon Dioxide 25 mmol/L (22-30); Chloride 99 mmol/L (98-107); Estimated CRCL calculation 95 ml/min; Estimated Glomerular Filt Rate > 60; Glucose 390 mg/dL (65-110); Potassium 4.2 mmol/L (3.4-5.0); Sodium 132 mmol/L (137-145)
[2025-02-05] MEDS: INSULIN HUMAN REGULAR (*BKC) 100 UNITS/ML 6 UNITS IV PUSH (14:59)
[2025-02-05] MEDS: INSULIN ASPART (*BKC) 100 UNITS/ML SUB-Q ×2 (16:40→20:21)
[2025-02-05 18:36] LABS: MRSA (PCR) NOT DETECTED (NOT DETECTE)
[2025-02-06] VITALS (10 sets, daily range): BP systolic 126–168; BP diastolic 53–85; PULSE 67–91; RESP 16–23; TEMP 36.6–37.2; O2SAT 92–100
[2025-02-06 04:26] LABS: Alanine Aminotransferase 14 U/L (6-50); Albumin Level 3.7 g/dL (3.5-5.1); Alkaline Phosphatase 62 U/L (38-126); Anion Gap 8 mmol/L (4-12); Aspartate Amino Transferase 20 U/L (17-59); Bilirubin,Total 0.6 mg/dL (0.2-1.3); Blood Urea Nitrogen 18 mg/dL (9-20); Calcium 8.5 mg/dL (8.4-10.2); Carbon Dioxide 27 mmol/L (22-30); Chloride 99 mmol/L (98-107); Estimated CRCL calculation 95 ml/min; Estimated Glomerular Filt Rate > 60; Glucose 374 mg/dL (65-110); Magnesium 1.5 mg/dL (1.6-2.3); Potassium 3.7 mmol/L (3.4-5.0); Sodium 134 mmol/L (137-145); Total Protein 6.4 g/dL (6.3-8.2)
[2025-02-06 04:30] LABS: Hematocrit 34.9 % (42.0-52.0); Hemoglobin 11.5 g/dL (14.0-18.0); Immature Granulocyte Percent A 0.5 % (0-0.5); Lymphocytes Absolute Auto 2.24 K/mm3 (0.9-3.2); Mean Corpuscular HGB Conc 33.0 g/dl (32-36); Mean Corpuscular Hemoglobin 29.0 pg (26-34); Mean Corpuscular Volume 87.9 fl (80-100); Nucleated Red Blood Cells Absolute Auto 0.000 K/mm3 (0.0-0.012); Nucleated Red Blood Cells Perc 0.0 % (0.0-0.2); Platelet Count Result 268 k/mm3 (150-375); Red Blood Count 3.97 M/mm3 (4.6-6.20); White Blood Count 11.1 K/mm3 (4.5-10.0)
[2025-02-06] MEDS: FENOFIBRATE NANOCRYSTALLIZED 145 MG TABLET PO (08:44)
[2025-02-06] MEDS: INSULIN GLARGINE (*BKC) 100 UNITS/ML 35 UNITS SUB-Q (08:45)
[2025-02-06] MEDS: INSULIN ASPART (*BKC) 100 UNITS/ML SUB-Q ×2 (08:45→11:28)
[2025-02-06] MEDS: ATORVASTATIN 20 MG TABLET PO (08:45)
[2025-02-06] MEDS: ENOXAPARIN 40 MG/0.4 ML SYRINGE SUB-Q (08:45)
[2025-02-06] MEDS: INSULIN ASPART (*BKC) 100 UNITS/ML 6 UNITS SUB-Q ×3 (08:46→16:51)
[2025-02-06] MEDS: MAGNESIUM SULF 2 GM/WATER 50ML 2 GM/50 ML BAG IVPB (08:56)
[2025-02-06] MEDS: HYDROcodone/acetaminophen (*CRX) 7.5-325 MG TABLET 1 TAB PO ×2 (09:01→20:01)
--- NOTE | 2025-02-06 10:01 | ECG_ITS ---
Test Date: 2025-02-06 10:05:45 Measurements Intervals [place] Rate: 76 P: 55 ID: [id number] QRS: -72 QRSD: 162 T: 87 QT: 454 QTc: 512 Interpretive Statements SINUS RHYTHM WITH OCCASIONAL VENTRICULAR PREMATURE COMPLEXES MARKED LEFT AXIS DEVIATION [QRS AXIS < -30] RIGHT BUNDLE BRANCH BLOCK [120+ ms QRS DURATION, UPRIGHT V1, 40+ ms S IN I/aVL/V4/V5/V6] LEFT VENTRICULAR HYPERTROPHY AND ST-T CHANGE [VOLTAGE CRITERIA PLUS ST/T ABNORMALITY] Compared to ECG 02/05/2025 08:42:35 NO SIGNIFICANT CHANGES Electronically Signed On 02-06-2025 11:28:01 CDT by Juan Canas M.D.
--- NOTE | 2025-02-06 14:03 | P.PNINT_ITS ---
Progress Note: A&P Assessment and Plan (1) Diabetic keto-acidosis: Qualifiers: Diabetes mellitus complication detail: without coma Diabetes mellitus type: type 1 Qualified Code(s): E10.10 - Type 1 diabetes mellitus with ketoacidosis without coma Code(s): E11.10 - Type 2 diabetes mellitus with ketoacidosis without coma Status: Acute Assessment and Plan: Patient presented with hyperglycemia with blood sugars of 576, elevated beta hydroxybutyrate, UA showed ketones and glucose. No anion gap -patient was given 2 L IV fluid bolus in the ER and given a bolus of 8 units IV regular insulin x1 and transferred to the ICU for further management -repeat labs a revealed no anion gap, CO2 of 27. Blood sugars 391. Will give 5 units of regular insulin IV x1. Start Lantus 20 units daily, 1st dose now. -diabetic carb consistent diet -patient blood sugars remain elevated this morning, I increased Lantus to 35 units, will give 6 units of NovoLog with meals and continue sliding scale insulin (2) Type 1 diabetes: Qualifiers: Diabetes mellitus complication status: with ketoacidosis Diabetes mellitus complication detail: without coma Qualified Code(s): E10.10 - Type 1 diabetes mellitus with ketoacidosis without coma Code(s): E10.9 - Type 1 diabetes mellitus without complications Status: Chronic Assessment and Plan: Hemoglobin A1c is 8.3 this admission -patient does use a insulin pump at home, which was unfortunately not approximated to his scan so patient was not receiving any insulin. -patient only takes insulin via the insulin pump. -Has been OFF glimepiride, Farxiga, Lantus, mounjaro -patient has been using 33 units of basal insulin per day (3) Hypertension: Qualifiers: Hypertension type: primary hypertension Qualified Code(s): I10 - Essential (primary) hypertension Code(s): I10 - Essential (primary) hypertension Status: Chronic Assessment and Plan: Will decrease lisinopril 5 mg daily as his stated that patient gets hypotensive with the higher dose. (4) Mixed hyperlipidemia: Code(s): E78.2 - Mixed hyperlipidemia Status: Chronic Assessment and Plan: Will continue atorvastatin, fenofibrate Plan DVT prophylaxis: Lovenox Stress ulcer prophylaxis: Not indicated Nutrition: Diabetic and carb consistent diet Code Status: Full code Critical Care Time Spent: 31 minutes Due to a high probability of clinically significant, life threatening deterioration, the patient required my highest level of preparedness to intervene emergently and I personally spent this critical care time directly and personally managing the patient. This critical care time included obtaining a history; examining the patient; pulse oximetry; ordering and review of studies; arranging urgent treatment with development of a management plan; evaluation of patient's response to treatment; frequent reassessment; and discussions with other providers. It was exclusive of separately billable procedures and treating other patients and teaching time. Please see Assessment and Plan section and the rest of the note for further information on patient assessment and treatment This dictation may have been done utilizing a voice recognition system. Attempts have been made to correct errors. However, there may be uncorrected grammatical, spelling, and recognitions errors present. Subjective Date/time seen: 02/06/25 14:03 Interval history: Reason for consult: Hyperglycemia, questionable mild DKA 02/06/2025: Patient seen and examined the ICU, is awake, alert, oriented, nonfocal, denies any chest pain, shortness of breath abdominal pain, nausea, vomiting. Blood sugars remain elevated this morning. WBC count is improving, afebrile, adequate urine output, for tolerating p.o. diet, hemodynamically stable Review of Systems Review of Systems: All systems reviewed & are unremarkable except as noted in HPI and below Exam Narrative: General: Pleasant gentleman in no acute distress HEENT:? Moist oral mucosa, pupils are equal and reactive, sclera is clear Neck:? Supple Respiratory:? Clear to auscultation bilaterally, no wheezing, adequate air entry Cardiac:? S1-S2 normal, regular rate and rhythm Abdomen:? Soft, nontender, nondistended, normoactive bowel sounds Extremities:? No edema, palpable pedal pulses Neuro:? Patient is awake, alert, oriented, nonfocal Skin:? Warm and dry, no lesions noted Psych:? Normal mentation and affect Objective Data Vital Signs Vital Signs: Vital Signs - 24 hr 02/05/25 16:00 02/05/25 16:02/05/25 16:00 Temperature 98.2 F Pulse Rate 90 90 90 Respiratory Rate 21 H 22 H Blood Pressure 144/72 H Pulse Oximetry 92 92 Oxygen Delivery Room Air 02/05/25 18:00 02/05/25 18:02/05/25 20:00 Temperature 99.4 F Pulse Rate 86 86 79 Respiratory Rate 24 H 24 H Blood Pressure 134/67 146/90 H Pulse Oximetry 98 Oxygen Delivery 02/05/25 20:00 02/05/25 20:00 02/05/25 22:00 Temperature Pulse Rate 89 83 Respiratory Rate 25 H Blood Pressure 135/87 Pulse Oximetry 98 95 Oxygen Delivery Room Air 02/05/25 22:00 02/06/25 00:00 02/06/25 00:00 Temperature 99.0 F Pulse Rate 83 77 Respiratory Rate 21 H Blood Pressure 158/76 H Pulse Oximetry 92 92 Oxygen Delivery Room Air 02/06/25 00:00 02/06/25 02:00 02/06/25 02:00 Temperature Pulse Rate 78 76 76 Respiratory Rate 19 Blood Pressure 162/81 H Pulse Oximetry 94 Oxygen Delivery 02/06/25 04:00 02/06/25 04:00 02/06/25 04:00 Temperature 98.8 F Pulse Rate 87 91 Respiratory Rate 17 Blood Pressure 165/76 H Pulse Oximetry 96 96 Oxygen Delivery Room Air 02/06/25 06:00 02/06/25 06:00 02/06/25 08:00 Temperature 98.5 F Pulse Rate 78 78 83 Respiratory Rate 19 20 Blood Pressure 153/75 H 168/79 H Pulse Oximetry 100 Oxygen Delivery 02/06/25 08:00 02/06/25 10:00 02/06/25 10:00 Temperature Pulse Rate 82 80 80 Respiratory Rate 23 H Blood Pressure 126/73 Pulse Oximetry Oxygen Delivery 02/06/25 12:00 02/06/25 12:00 Temperature 97.9 F Pulse Rate 67 68 Respiratory Rate 20 Blood Pressure 152/72 H Pulse Oximetry 95 Oxygen Delivery Intake/Output Intake/Output: Intake & Output 02/03/25 02/04/25 02/05/25 02/06/25 23:59 23:59 23:59 23:59 Intake Total 2760 1434 Output Total 1850 3400 Balance 910 -1966 Meds/Results Medications: Active Medications Generic Name Dose Route Start Last Admin Trade Name Freq PRN Reason Stop Dose Admin Acetaminophen 650 mg 02/05/25 14:09 Acetaminophen 325 Mg Tablet PO Q6H PRN Mild Pain (1-3) or Fever Hydrocodone Bitart/Acetaminophen 1 tab 02/05/25 12:59 02/06/25 09:01 Hydrocodone/Acetaminophen (*Crx) 7.5-325 Mg Tablet PO 1 tab BID PRN Administration Pain Rated 6 or Greater Albuterol 2 puff 02/05/25 14:09 Albuterol Sulfate (*Sp) Aerosol 1 Puff INHALATION Q4H PRN Shortness Of Breath Or Wheezing Atorvastatin Calcium 20 mg 02/06/25 09:00 02/06/25 08:45 Atorvastatin 20 Mg Tablet PO 20 mg DAILY DENICE Administration Dextrose 12.5 gm 02/05/25 11:47 Dextrose 50% 25 Gm/50 Ml Syringe IV PUSH PRN PRN Hypoglycemia Protocol Enoxaparin Sodium 40 mg 02/06/25 09:00 02/06/25 08:45 Enoxaparin 40 Mg/0.4 Ml Syringe SUB-Q 40 mg DAILY DENICE Administration Fenofibrate 145 mg 02/06/25 09:00 02/06/25 08:44 Fenofibrate Nanocrystallized 145 Mg Tablet PO 145 mg QAM DENICE Administration Glucagon 1 mg 02/05/25 11:47 Glucagon For Inj 1 Mg Vial IM PRN PRN Hypoglycemia Protocol Glucose 15 gm 02/05/25 11:47 Glucose Oral Gel 15 Gm Of Glucse In 37.5 Gm Tube PO PRN PRN Hypoglycemia Protocol Hydralazine HCl 10 mg 02/05/25 12:46 02/06/25 02:32 Hydralazine Hcl 20 Mg/Ml Vial IV PUSH 10 mg Q4H PRN Administration Blood Pressure - High Dextrose 1,000 mls @ 100 mls/hr 02/05/25 11:47 Dextrose 5% 1,000 Ml IVPB PRN PRN Hypoglycemia Protocol Insulin Aspart 2 - 4 units 02/05/25 21:00 02/05/25 20:21 Insulin Aspart (*Bkc) 100 Units/Ml SUB-Q 3 units HS DENICE Administration Protocol Insulin Aspart 4 - 8 units 02/05/25 12:00 02/06/25 11:28 Insulin Aspart (*Bkc) 100 Units/Ml SUB-Q 6 units [facility] Administration Protocol Insulin Aspart 6 units 02/06/25 08:00 02/06/25 11:28 Insulin Aspart (*Bkc) 100 Units/Ml 0.067 units/kg (6 units) 6 units SUB-Q Administration [facility] Insulin Glargine 35 units 02/06/25 09:00 02/06/25 08:45 Insulin Glargine (*Bkc) 100 Units/Ml SUB-Q 35 units DAILY DENICE Administration Lisinopril 5 mg 02/06/25 09:00 02/06/25 08:44 Lisinopril 5 Mg Tablet PO 5 mg QAM DENICE Administration Ondansetron HCl 4 mg 02/05/25 12:47 Ondansetron Inj 4 Mg/2 Ml Vial IV PUSH Q6H PRN Nausea And Vomiting Polyethylene Glycol 17 gm 02/05/25 12:47 Polyethylene Glycol 3350 17 Gm Powd.Pack PO QAM PRN Constipation Radiology Results: ITS Impressions Chest X-Ray 02/05/25 10:00 IMPRESSION: 1. No acute cardiopulmonary findings given portable technique. Labs Labs: Laboratory Results - last 24 hr 02/05/25 02/05/25 02/05/25 14:28 16:35 17:17 WBC RBC Hgb Hct MCV MCH MCHC RDW Plt Count MPV Immature Gran % (Auto) Neut % (Auto) Lymph % (Auto) [place] % (Auto) Eos % (Auto) Baso % (Auto) Lymph # (Auto) [place] # (Auto) Eos # (Auto) Baso # (Auto) Abs Immat Gran (auto) Absolute Neuts (auto) Absolute Nucleated RBC Nucleated RBC % Sodium 132 L Potassium 4.2 Chloride 99 Carbon Dioxide 25 Anion Gap 8 BUN 21 H Creatinine 0.63 L Estim Creat Clear Calc 95 Estimated GFR > 60 Glucose 390 H POC Capillary Glucose 312 H Calcium 8.7 Phosphorus Magnesium Total Bilirubin AST ALT Alkaline Phosphatase Total Protein Albumin Nasal MRSA (PCR) Not detected 02/05/25 02/06/25 02/06/25 20:21 03:49 08:38 WBC 11.1 H RBC 3.97 L Hgb 11.5 L Hct 34.9 L MCV 87.9 MCH 29.0 MCHC 33.0 RDW 12.5 Plt Count 268 MPV 8.9 Immature Gran % (Auto) 0.5 Neut % (Auto) 65.6 Lymph % (Auto) 20.2 [place] % (Auto) 9.1 H Eos % (Auto) 3.2 Baso % (Auto) 1.4 H Lymph # (Auto) 2.24 [place] # (Auto) 1.0 H Eos # (Auto) 0.4 H Baso # (Auto) 0.2 H Abs Immat Gran (auto) 0.05 H Absolute Neuts (auto) 7.3 H Absolute Nucleated RBC 0.000 Nucleated RBC % 0.0 Sodium 134 L Potassium 3.7 Chloride 99 Carbon Dioxide 27 Anion Gap 8 BUN 18 Creatinine 0.63 L Estim Creat Clear Calc 95 Estimated GFR > 60 Glucose 374 H POC Capillary Glucose 346 H 405 H Calcium 8.5 Phosphorus 2.8 Magnesium 1.5 L Total Bilirubin 0.6 AST 20 ALT 14 Alkaline Phosphatase 62 Total Protein 6.4 Albumin 3.7 Nasal MRSA (PCR) 02/06/25 11:17 WBC RBC Hgb Hct MCV MCH MCHC RDW Plt Count MPV Immature Gran % (Auto) Neut % (Auto) Lymph % (Auto) [place] % (Auto) Eos % (Auto) Baso % (Auto) Lymph # (Auto) [place] # (Auto) Eos # (Auto) Baso # (Auto) Abs Immat Gran (auto) Absolute Neuts (auto) Absolute Nucleated RBC Nucleated RBC % Sodium Potassium Chloride Carbon Dioxide Anion Gap BUN Creatinine Estim Creat Clear Calc Estimated GFR Glucose POC Capillary Glucose 307 H Calcium Phosphorus Magnesium Total Bilirubin AST ALT Alkaline Phosphatase Total Protein Albumin Nasal MRSA (PCR) Quality VTE Prophylaxis VTE prophylaxis: pharmacologic ordered
--- NOTE | 2025-02-06 17:07 | PC.NURSE ---
This patient, Stewart Arevalo, was transferred to [[facility] ] on 02/06/25 at 1622. Personal belongings sent with patient. Report given to [ Kelsy]. Appropriate documentation sent with patient.
[2025-02-07 05:47] LABS: Hematocrit 35.7 % (42.0-52.0); Hemoglobin 11.9 g/dL (14.0-18.0); Immature Granulocyte Percent A 0.4 % (0-0.5); Lymphocytes Absolute Auto 1.95 K/mm3 (0.9-3.2); Mean Corpuscular HGB Conc 33.3 g/dl (32-36); Mean Corpuscular Hemoglobin 29.3 pg (26-34); Mean Corpuscular Volume 87.9 fl (80-100); Nucleated Red Blood Cells Absolute Auto 0.000 K/mm3 (0.0-0.012); Nucleated Red Blood Cells Perc 0.0 % (0.0-0.2); Platelet Count Result 268 k/mm3 (150-375); Red Blood Count 4.06 M/mm3 (4.6-6.20); White Blood Count 8.1 K/mm3 (4.5-10.0)
[2025-02-07 06:14] LABS: Alanine Aminotransferase 12 U/L (6-50); Albumin Level 3.6 g/dL (3.5-5.1); Alkaline Phosphatase 61 U/L (38-126); Anion Gap 7 mmol/L (4-12); Aspartate Amino Transferase 18 U/L (17-59); Bilirubin,Total 0.4 mg/dL (0.2-1.3); Blood Urea Nitrogen 15 mg/dL (9-20); Calcium 8.4 mg/dL (8.4-10.2); Carbon Dioxide 29 mmol/L (22-30); Chloride 99 mmol/L (98-107); Estimated CRCL calculation 108 ml/min; Estimated Glomerular Filt Rate > 60; Glucose 226 mg/dL (65-110); Magnesium 1.6 mg/dL (1.6-2.3); Potassium 3.2 mmol/L (3.4-5.0); Sodium 135 mmol/L (137-145); Total Protein 6.4 g/dL (6.3-8.2)
[2025-02-07 06:37] VITALS: BP 166/75; PULSE 69; RESP 16; TEMP 36.7; O2SAT 95
[2025-02-07 07:53] VITALS: PULSE 62; O2SAT 92
[2025-02-07] MEDS: INSULIN ASPART (*BKC) 100 UNITS/ML 6 UNITS SUB-Q ×2 (08:43→12:10)
[2025-02-07] MEDS: INSULIN ASPART (*BKC) 100 UNITS/ML SUB-Q (08:43)
[2025-02-07] MEDS: FENOFIBRATE NANOCRYSTALLIZED 145 MG TABLET PO (08:44)
[2025-02-07] MEDS: ATORVASTATIN 20 MG TABLET PO (08:44)
[2025-02-07] MEDS: ENOXAPARIN 40 MG/0.4 ML SYRINGE SUB-Q (08:44)
[2025-02-07] MEDS: INSULIN GLARGINE (*BKC) 100 UNITS/ML 35 UNITS SUB-Q (08:45)
[2025-02-07] MEDS: POTASSIUM CHLORIDE 20 MEQ PACKET (FOR LIQUID) 40 MEQ PO (09:51)
[2025-02-07] MEDS: MAGNESIUM OXIDE 400 MG TABLET PO (09:51)
[2025-02-07 13:30] VITALS: BMI 28.0
[2025-02-07 13:51] VITALS: BP 136/85; PULSE 68; RESP 18; TEMP 36.4; O2SAT 93
--- NOTE | 2025-02-07 14:37 | P.PNIM_ITS ---
Progress Note: A&P Assessment and Plan (1) Diabetic keto-acidosis: Qualifiers: Diabetes mellitus complication detail: without coma Diabetes mellitus type: type 1 Qualified Code(s): E10.10 - Type 1 diabetes mellitus with ketoacidosis without coma Code(s): E11.10 - Type 2 diabetes mellitus with ketoacidosis without coma Status: Acute Assessment and Plan: The patient presented here with hyperglycemia with a blood sugar greater than 500. In DKA as evidence by a 2+ ketones in his urine and a beta hydroxy of 3.07. Anion gap 15. DKA likely precipitated by malfunction of insulin pump, pump not approximated to the skin and patient was not receiving any insulin. - history of type 1 diabetes, per daughter was diagnosed via antibody testing at [facility] - labs: initial (02/05) - A1C 8.3%, WBC 15.8, anion gap 15, potassium 4.7, glucose 576, lactic 2.2, beta hydroxy 3.07, CO2 22 repeat (02/05) - no anion gap, CO2 27, potassium 4.4, anion gap 11, glucose 391, lactic 2.1 - trend BMP Q4H, repeat Mag and Phos - DKA protocol initiated - IV fluids: given 2L in ED. given initial 1L in the ICU, maintenance fluids discontinued - diabetic diet -home medications: patient has been taken off glimepiride, farixga, lantus, mounjaro has been on 33u of basil insulin daily - felt strip finisher consulted Given 5 units of regular insulin IV x1, started on Lantus 20 units daily with 1st dose today - senior health educator consulted - whitewater rafting guide consulted (2) Type 1 diabetes: Qualifiers: Diabetes mellitus complication status: with ketoacidosis Diabetes mellitus complication detail: without coma Qualified Code(s): E10.10 - Type 1 diabetes mellitus with ketoacidosis without coma Code(s): E10.9 - Type 1 diabetes mellitus without complications Status: Chronic Assessment and Plan: - see above (3) Mixed hyperlipidemia: Code(s): E78.2 - Mixed hyperlipidemia Status: Chronic Assessment and Plan: - continue atorvastatin and fenofibrate (4) Hypertension: Qualifiers: Hypertension type: primary hypertension Qualified Code(s): I10 - Essential (primary) hypertension Code(s): I10 - Essential (primary) hypertension Status: Chronic Assessment and Plan: - chronic, currently 129/75 - home medications: Reportedly on lisinopril 10 mg daily, however patient denies. Patient started on lisinopril 2.5 mg daily as his systolic was in the 140s. - monitor Plan 64 Male with history of type I diabetes presented to ER with hyperglycemia and was found to be in DKA, patient stats his insulin pump was not functioning and did not receive any insulin, initially patient was admitted in the ICU and was treated with DKA protocol, his anion gap is now close to normal, he was started on long acting insulin 35u qd, and short acting 6u with each meal and high dose sliding scale, patient stats he is feeling better, patient is seen senior health educator and concern about patient age managing insulin pump, patient family will bring another insulin pump and plan and monitor. Diet: Diabetic GI Prophylaxis: n/a DVT Prophylaxis: Lovenox IV fluids: 3L bolus Lines/Tubes: Peripheral IV Code Status: Full code Subjective Date/time seen: 02/07/25 14:37 Interval history: Nausea, Vomiting, Diarrhea H&P-Narrative: 64 y/o M with PMH hypertension, emphysema, chronic back pain, diabetes type 1 on insulin pump and Dexcom, hyperlipidemia, marijuana use, and CAD presents here with nausea and vomiting. The patient presents here from home via EMS on 02/05 for further evaluation of nausea and vomiting. HPI obtained through patient report, patient's daughter report, and chart review. He reports onset last night. He has a past medical history significant for type 1 diabetes, currently has a Dexcom and insulin pump in place. Per the patient's daughter, she received an alert that the patient's glucose was 41 last night, however the patient remained awake and orientated. Patient then checked a manual blood sugar this morning which showed his sugar to be significantly elevated. He reports associated nausea with 1 episode of vomiting and abdominal pain he describes as achy/diffuse. This prompted the patient to call EMS, upon their arrival the patient's blood sugar was found to be 595. Upon arrival to the emergency department, the patient's insulin pump was inspected and appeared to be turned off/not injecting quickly and not approximated to the skin. Insulin pump had been placed 2 weeks ago which he reports has previously been controlling his blood sugars well. The patient currently reports he is feeling significantly better since he has received fluids and insulin. Last episode of DKA was a few weeks ago where he was admitted to [facility]. Patient reports he was in a coma for multiple days, underwent testing and antibodies showed patient was a Type 1 DM, originally believed to be DM2. Initial VS at presentation: 97.6? F, HR 106, R 20, 137/71, and 94% on RA. ED workup showed: WBC 15.8, hemoglobin 13.1, sodium 135, creatinine 0.74 and GFR >60, glucose 576, A1c 8.3%, lactic 2.2, beta hydroxy 3.07. CXR showed no acute cardiopulmonary findings. UA showed 3+ glucose and 2+ ketones otherwise unremarkable. 64 Male with history of type I diabetes presented to ER with hyperglycemia and was found to be in DKA, patient stats his insulin pump was not functioning and did not receive any insulin, initially patient was admitted in the ICU and was treated with DKA protocol, his anion gap is now close to normal, he was started on long acting insulin 35u qd, and short acting 6u with each meal and high dose sliding scale, patient stats he is feeling better, patient is seen senior health educator and concern about patient age managing insulin pump, patient family will bring another insulin pump and plan and monitor. Review of Systems Review of Systems: All systems reviewed & are unremarkable except as noted in HPI and below Exam 2 Narrative: Patient is comfortable, NAD HEENT: eyes are clear and none icteric LUNGS:CTA HEART: RR S1S2 ABD: BS+, Soft and nontender Lower extremities: no edema SKIN: nonjaundiced Neuro: grossly intact. Objective Data Vital Signs Vital Signs: Vital Signs - 24 hr 02/06/25 16:00 02/06/25 20:00 02/06/25 21:39 Temperature 36.8 C 36.6 C Pulse Rate 79 70 Respiratory Rate 16 16 Blood Pressure 142/85 H 135/53 L Pulse Oximetry 98 93 Oxygen Delivery Room Air 02/07/25 06:37 02/07/25 07:53 02/07/25 13:51 Temperature 36.7 C 36.4 C Pulse Rate 69 62 68 Respiratory Rate 16 18 Blood Pressure 166/75 H 136/85 Pulse Oximetry 95 92 93 Oxygen Delivery Room Air Intake/Output Intake/Output: Intake & Output 02/04/25 02/05/25 02/06/25 02/07/25 23:59 23:59 23:59 23:59 Intake Total 7391 1571 880 Output Total 0360 7090 Balance 910 -1826 880 Meds/Results Medications: Active Medications Generic Name Dose Route Start Last Admin Trade Name Freq PRN Reason Stop Dose Admin Acetaminophen 650 mg 02/05/25 14:09 Acetaminophen 325 Mg Tablet PO Q6H PRN Mild Pain (1-3) or Fever Hydrocodone Bitart/Acetaminophen 1 tab 02/05/25 12:59 02/06/25 20:01 Hydrocodone/Acetaminophen (*Crx) 7.5-325 Mg Tablet PO 1 tab BID PRN Administration Pain Rated 6 or Greater Albuterol 2 puff 02/05/25 14:09 Albuterol Sulfate (*Sp) Aerosol 1 Puff INHALATION Q4H PRN Shortness Of Breath Or Wheezing Atorvastatin Calcium 20 mg 02/06/25 09:00 02/07/25 08:44 Atorvastatin 20 Mg Tablet PO 20 mg DAILY DENICE Administration Dextrose 12.5 gm 02/05/25 11:47 Dextrose 50% 25 Gm/50 Ml Syringe IV PUSH PRN PRN Hypoglycemia Protocol Enoxaparin Sodium 40 mg 02/06/25 09:00 02/07/25 08:44 Enoxaparin 40 Mg/0.4 Ml Syringe SUB-Q 40 mg DAILY DENICE Administration Fenofibrate 145 mg 02/06/25 09:00 02/07/25 08:44 Fenofibrate Nanocrystallized 145 Mg Tablet PO 145 mg QAM DENICE Administration Glucagon 1 mg 02/05/25 11:47 Glucagon For Inj 1 Mg Vial IM PRN PRN Hypoglycemia Protocol Glucose 15 gm 02/05/25 11:47 Glucose Oral Gel 15 Gm Of Glucse In 37.5 Gm Tube PO PRN PRN Hypoglycemia Protocol Hydralazine HCl 10 mg 02/05/25 12:46 02/06/25 02:32 Hydralazine Hcl 20 Mg/Ml Vial IV PUSH 10 mg Q4H PRN Administration Blood Pressure - High Dextrose 1,000 mls @ 100 mls/hr 02/05/25 11:47 Dextrose 5% 1,000 Ml IVPB PRN PRN Hypoglycemia Protocol Insulin Aspart 2 - 4 units 02/05/25 21:00 02/06/25 21:56 Insulin Aspart (*Bkc) 100 Units/Ml SUB-Q Not Given HS DENICE Protocol Insulin Aspart 4 - 8 units 02/05/25 12:00 02/07/25 12:09 Insulin Aspart (*Bkc) 100 Units/Ml SUB-Q Not Given TID[facility] Protocol Insulin Aspart 6 units 02/06/25 08:00 02/07/25 12:10 Insulin Aspart (*Bkc) 100 Units/Ml 0.067 units/kg (6 units) 6 units SUB-Q Administration TIDWM [facility] Insulin Glargine 35 units 02/06/25 09:00 02/07/25 08:45 Insulin Glargine (*Bkc) 100 Units/Ml SUB-Q 35 units DAILY DENICE Administration Lisinopril 5 mg 02/06/25 09:00 02/07/25 08:44 Lisinopril 5 Mg Tablet PO 5 mg QAM DENICE Administration Magnesium Oxide 400 mg 02/07/25 09:25 02/07/25 09:51 Magnesium Oxide 400 Mg Tablet PO 400 mg QAM DENICE Administration Ondansetron HCl 4 mg 02/05/25 12:47 Ondansetron Inj 4 Mg/2 Ml Vial IV PUSH Q6H PRN Nausea And Vomiting Polyethylene Glycol 17 gm 02/05/25 12:47 Polyethylene Glycol 3350 17 Gm Powd.Pack PO QAM PRN Constipation Radiology Results: ITS Impressions Chest X-Ray 02/05/25 10:00 IMPRESSION: 1. No acute cardiopulmonary findings given portable technique. Labs Labs: Laboratory Results - last 24 hr 02/06/25 02/06/25 02/06/25 14:14 16:17 21:38 WBC RBC Hgb Hct MCV MCH MCHC RDW Plt Count MPV Immature Gran % (Auto) Neut % (Auto) Lymph % (Auto) Hubbard % (Auto) Eos % (Auto) Baso % (Auto) Lymph # (Auto) Hubbard # (Auto) Eos # (Auto) Baso # (Auto) Abs Immat Gran (auto) Absolute Neuts (auto) Absolute Nucleated RBC Nucleated RBC % Sodium Potassium Chloride Carbon Dioxide Anion Gap BUN Creatinine Estim Creat Clear Calc Estimated GFR Glucose POC Capillary Glucose 212 H 183 H 166 H Calcium Phosphorus Magnesium Total Bilirubin AST ALT Alkaline Phosphatase Total Protein Albumin 02/07/25 02/07/25 02/07/25 05:01 07:43 12:09 WBC 8.1 RBC 4.06 L Hgb 11.9 L Hct 35.7 L MCV 87.9 MCH 29.3 MCHC 33.3 RDW 12.5 Plt Count 268 MPV 8.9 Immature Gran % (Auto) 0.4 Neut % (Auto) 56.6 Lymph % (Auto) 24.0 Hubbard % (Auto) 11.2 H Eos % (Auto) 6.2 H Baso % (Auto) 1.6 H Lymph # (Auto) 1.95 Hubbard # (Auto) 0.9 H Eos # (Auto) 0.5 H Baso # (Auto) 0.1 Abs Immat Gran (auto) 0.03 Absolute Neuts (auto) 4.6 Absolute Nucleated RBC 0.000 Nucleated RBC % 0.0 Sodium 135 L Potassium 3.2 L Chloride 99 Carbon Dioxide 29 Anion Gap 7 BUN 15 Creatinine 0.55 L Estim Creat Clear Calc 108 Estimated GFR > 60 Glucose 226 H POC Capillary Glucose 265 H 168 H Calcium 8.4 Phosphorus 3.3 Magnesium 1.6 Total Bilirubin 0.4 AST 18 ALT 12 Alkaline Phosphatase 61 Total Protein 6.4 Albumin 3.6 Quality VTE Prophylaxis VTE prophylaxis: pharmacologic ordered
--- NOTE | 2025-02-07 17:03 | PM.DS ---
DS: Admitting Diagnosis Discharge Date 02/07/25 Admitting Diagnosis Nausea, Vomiting, Diarrhea DS: Discharge Diagnosis Discharge Diagnosis (1) Diabetic keto-acidosis: Qualifiers: Diabetes mellitus complication detail: without coma Diabetes mellitus type: type 1 Qualified Code(s): E10.10 - Type 1 diabetes mellitus with ketoacidosis without coma Code(s): E11.10 - Type 2 diabetes mellitus with ketoacidosis without coma Status: Acute Assessment and Plan: The patient presented here with hyperglycemia with a blood sugar greater than 500. In DKA as evidence by a 2+ ketones in his urine and a beta hydroxy of 3.07. Anion gap 15. DKA likely precipitated by malfunction of insulin pump, pump not approximated to the skin and patient was not receiving any insulin. - history of type 1 diabetes, per daughter was diagnosed via antibody testing at [facility] - labs: initial (02/05) - A1C 8.3%, WBC 15.8, anion gap 15, potassium 4.7, glucose 576, lactic 2.2, beta hydroxy 3.07, CO2 22 repeat (02/05) - no anion gap, CO2 27, potassium 4.4, anion gap 11, glucose 391, lactic 2.1 - trend BMP Q4H, repeat Mag and Phos - DKA protocol initiated - IV fluids: given 2L in ED. given initial 1L in the ICU, maintenance fluids discontinued - diabetic diet -home medications: patient has been taken off glimepiride, farixga, lantus, mounjaro has been on 33u of basil insulin daily - tool die maker consulted Given 5 units of regular insulin IV x1, started on Lantus 20 units daily with 1st dose today - oral and maxillofacial surgery resident consulted - mental health practitioner consulted (2) Type 1 diabetes: Qualifiers: Diabetes mellitus complication status: with ketoacidosis Diabetes mellitus complication detail: without coma Qualified Code(s): E10.10 - Type 1 diabetes mellitus with ketoacidosis without coma Code(s): E10.9 - Type 1 diabetes mellitus without complications Status: Chronic Assessment and Plan: - see above (3) Mixed hyperlipidemia: Code(s): E78.2 - Mixed hyperlipidemia Status: Chronic Assessment and Plan: - continue atorvastatin and fenofibrate (4) Hypertension: Qualifiers: Hypertension type: primary hypertension Qualified Code(s): I10 - Essential (primary) hypertension Code(s): I10 - Essential (primary) hypertension Status: Chronic Assessment and Plan: - chronic, currently 129/75 - home medications: Reportedly on lisinopril 10 mg daily, however patient denies. Patient started on lisinopril 2.5 mg daily as his systolic was in the 140s. - monitor Plan 64 Male with history of type I diabetes presented to ER with hyperglycemia and was found to be in DKA, patient stats his insulin pump was not functioning and did not receive any insulin, initially patient was admitted in the ICU and was treated with DKA protocol, his anion gap is now close to normal, he was started on long acting insulin 35u qd, and short acting 6u with each meal and high dose sliding scale, patient stats he is feeling better, patient is seen oral and maxillofacial surgery resident and concern about patient age managing insulin pump, patient family will bring another insulin pump and plan and monitor. Diet: Diabetic GI Prophylaxis: n/a DVT Prophylaxis: Lovenox IV fluids: 3L bolus Lines/Tubes: Peripheral IV Code Status: Full code DS: Summary Hospital Course Hospital Course: 64 Male with history of type I diabetes presented to ER with hyperglycemia and was found to be in DKA, patient stats his insulin pump was not functioning and did not receive any insulin, initially patient was admitted in the ICU and was treated with DKA protocol, his anion gap is now close to normal, he was started on long acting insulin 35u qd, and short acting 6u with each meal and high dose sliding scale, patient stats he is feeling better, patient is seen oral and maxillofacial surgery resident and concern about patient age managing insulin pump, patient family will bring another insulin pump and plan and monitor. Patient daughter who is nurse and his caregiver here with new insulin pump, and the pump placed, discuss with patient and his daughter, it will safe to discharge patient with his daughter who is his caregiver and manage his insulin pump, patient is clinically stable, will discharge today. Time Spent with Patient Time attestation: Total time spent providing and/or coordinating discharge services: Exam Narrative: Patient is comfortable, NAD HEENT: eyes are clear and none icteric LUNGS:CTA HEART: RR S1S2 ABD: BS+, Soft and nontender Lower extremities: no edema SKIN: nonjaundiced Neuro: grossly intact. DS: Data Data Completed and Pending Labs on day of discharge: Labs from last 24 hours 02/07/25 02/07/25 02/07/25 16:27 12:09 07:43 WBC RBC Hgb Hct MCV MCH MCHC RDW Plt Count MPV Immature Gran % (Auto) Neut % (Auto) Lymph % (Auto) Grand % (Auto) Eos % (Auto) Baso % (Auto) Lymph # (Auto) Grand # (Auto) Eos # (Auto) Baso # (Auto) Abs Immat Gran (auto) Absolute Neuts (auto) Absolute Nucleated RBC Nucleated RBC % Sodium Potassium Chloride Carbon Dioxide Anion Gap BUN Creatinine Estim Creat Clear Calc Estimated GFR Glucose POC Capillary Glucose 151 H 168 H 265 H Calcium Phosphorus Magnesium Total Bilirubin AST ALT Alkaline Phosphatase Total Protein Albumin 02/07/25 02/06/25 02/06/25 05:01 21:38 14:14 WBC 8.1 RBC 4.06 L Hgb 11.9 L Hct 35.7 L MCV 87.9 MCH 29.3 MCHC 33.3 RDW 12.5 Plt Count 268 MPV 8.9 Immature Gran % (Auto) 0.4 Neut % (Auto) 56.6 Lymph % (Auto) 24.0 Grand % (Auto) 11.2 H Eos % (Auto) 6.2 H Baso % (Auto) 1.6 H Lymph # (Auto) 1.95 Grand # (Auto) 0.9 H Eos # (Auto) 0.5 H Baso # (Auto) 0.1 Abs Immat Gran (auto) 0.03 Absolute Neuts (auto) 4.6 Absolute Nucleated RBC 0.000 Nucleated RBC % 0.0 Sodium 135 L Potassium 3.2 L Chloride 99 Carbon Dioxide 29 Anion Gap 7 BUN 15 Creatinine 0.55 L Estim Creat Clear Calc 108 Estimated GFR > 60 Glucose 226 H POC Capillary Glucose 166 H 212 H Calcium 8.4 Phosphorus 3.3 Magnesium 1.6 Total Bilirubin 0.4 AST 18 ALT 12 Alkaline Phosphatase 61 Total Protein 6.4 Albumin 3.6 Discharge Plan Discharge Attending physician on discharge: Radha Orona Consulting providers: Shai Gordon Discharging Clinician: Radha Orona Patient Disposition: Home Activity: as tolerated Diet: diabetic Discharge Instructions: patient is being dischaged with his daughter who is a nurse and familiar with insulin pump, and will monitor patient and his blood sugars, patient to follow up with video game producer and primary care provider as soon as possible, patient is insturcted if any symptoms redevelop to go to nearest ER. Patient Instructions: Antibiotic Form, Basic Carbohydrate Counting (DC) Patient Language: Serbian Stand Alone Forms: General Discharge Information Follow-up/Referrals: Erasmo,SANDRA Corona [Primary Care Provider, Unknown] Discharge Medications: New dextrose [Glutose-15] 40 % Gel 15 g PO PRN PRN (Reason: Hypoglycemia) Qty: 112.5 0RF lisinopril 5 mg Tablet 5 mg PO QAM Qty: 30 0RF polyethylene glycol 3350 [Miralax] 17 gram Powder In Packet 17 g PO QAM PRN (Reason: Constipation) Qty: 14 0RF Continued atorvastatin [Lipitor] 20 mg tablet 20 mg PO DAILY (DME) Contour Next Test Strips Strip MISCELLANEOUS fenofibrate 160 mg tablet 160 mg PO DAILY lisinopril 10 mg tablet 10 mg PO DAILY insulin glargine [Lantus Solostar U-100 Insulin] 100 unit/mL (3 mL) insulin pen 42 unit subcut DAILY Qty: 15 3RF albuterol sulfate 90 mcg/actuation HFA aerosol inhaler 2 puff inhalation Q4H PRN (Reason: shortness of breath or wheezing) Qty: 8.5 1RF hydrocodone-acetaminophen 7.5-325 mg tablet 7.5 - 325 tablet PO BID PRN (Reason: pain) Qty: 60 0RF (DME) pen needle, diabetic [BD Ultra-Fine Sharyn Pen Needle] 32 gauge x 5/32 needle MISCELLANEOUS Qty: 100 3RF Rx Instructions: As directed (DME) OneTouch Verio test strips Strip See Rx Instructions .ROUTE .COMPLEX Qty: 100 3RF Dose Instruction: USE 1 STRIP TO CHECK GLUCOSE TWICE DAILY Rx Instructions: USE 1 STRIP TO CHECK GLUCOSE TWICE DAILY Date of admission: 02/07/25 10:14 Primary Care Provider: Chloe Louis Admitting Provider: Radha Orona Attending physician on admission: Radha Orona Condition: Stable
--- NOTE | 2025-02-13 16:10 | PCCDE ---
DM Educator attempted to place courtesy follow up call - unsuccessful Outgoing recording stating ...call cannot be completed....
== END 2025-02-07 17:49 | disposition home or self-care (01) ==
LOC: ANHED 10:40 → ANHICU 10:56 → ANHIMU 14:54 → ANHICU 14:57 → ANH2MED 02-06 16:50
PROVIDERS: Internal Medicine; Student in an Organized Health Care Education/Training Program; Admitting Provider Family Medicine; Emergency Provider Emergency Medicine; PCP Physician Assistant; Visit Provider Family Medicine
DX: E10.10 Type 1 diabetes mellitus with ketoacidosis without coma (principal); I10 Essential (primary) hypertension; E78.2 Mixed hyperlipidemia; I25.10 Atherosclerotic heart disease of native coronary artery without angina pectoris; J43.9 Emphysema, unspecified; G89.29 Other chronic pain; Z79.4 Long term (current) use of insulin; F12.90 Cannabis use, unspecified, uncomplicated; Z96.41 Presence of insulin pump (external) (internal); Z79.84 Long term (current) use of oral hypoglycemic drugs; Z79.891 Long term (current) use of opiate analgesic; Z87.891 Personal history of nicotine dependence
CPT/HCPCS: 36415; 71045; 80048; 80053; 81003; 82010; 82948; 83036; 83605; 83690; 83735; 84100; 85025; 87641; 93005; 96361; 96374; 99285; A9270; G0378; J0360; J1650; J1815; J3475; J7120

== ENCOUNTER 2025-04-02 05:48 | Emergency (ER) | payer MEDICARE, SELFPAY ==
--- NOTE | ~2025-04-02 | XR_ITS ---
Examination: XR chest 1V portable Clinical History: elevated bp Comparison: 02/05/2025 Technique: Portable AP Findings: Heart size normal. Lungs clear. No acute bony abnormality. IMPRESSION: 1. No acute cardiopulmonary findings given portable technique. Reviewed, dictated and finalized at location R. NICAL DOCUMENTATION SPECIALIST
[2025-04-02 05:45] VITALS: BP 163/84; PULSE 94; RESP 16; TEMP 36.8; O2SAT 98
--- NOTE | 2025-04-02 06:01 | ECG_ITS ---
Test Date: 2025-04-02 06:40:15 Measurements Intervals [place] Rate: 86 P: 58 [place]: 181 QRS: -69 QRSD: 141 T: 79 QT: 406 QTc: 488 Interpretive Statements SINUS RHYTHM WITH OCCASIONAL VENTRICULAR PREMATURE COMPLEXES RIGHT BUNDLE BRANCH BLOCK LEFT ANTERIOR FASCICULAR BLOCK LEFT VENTRICULAR HYPERTROPHY AND ST-T CHANGE Electronically Signed On 04-02-2025 07:21:40 POTATO CHIP PACKAGING MACHINE OPERATOR by Som Wang D.O
--- OUTSIDE RECORDS SUMMARY | 2025-04-02 06:06 | XMS_ITS | Clinical Summary ---
Author Organization [facility] Address [address] [place] [address] Phone Care Team Providers Care Welt Trimming Machine Operator Name Role Phone Taras Avilez MD Primary [...] on file Legal Sex Male 5:07 PM PUMPER HEAD Gender Identity Not on file Sexual Orientation Not on file Last Filed Vital Signs Vital Sign Reading Time Taken Comments Blood Pressure 118/78 07/27/2019 8:30 PM PUMPER HEAD Pulse 59 07/27/2019 8:30 PM PUMPER HEAD Temperature 36.5 C (97.7 F) 07/27/2019 7:48 PM PUMPER HEAD Respiratory Rate 18 07/27/2019 8:30 PM PUMPER HEAD Oxygen Saturation 93% 07/27/2019 8:30 PM PUMPER HEAD Inhaled Oxygen Concentration - - Weight 77.1 kg (170 lb) 07/27/2019 5:14 PM PUMPER HEAD Height 172.7 cm (5' 8) 07/27/2019 5:14 PM PUMPER HEAD Body Mass Index 25.85 07/27/2019 5:14 PM PUMPER HEAD Plan of Treatment Health Maintenance Due Date Last Done Comments DTAP/TDAP/TD VACCINES (1 - Tdap) 1977 COLORECTAL SCREENING 2003 Colorectal Cancer Screening 2003 FIT-DNA Q 3 years 2003 FIT/FOBT Q 1 year 2003 Flex Sig/CT Colonography Q 5 years 2003 PNEUMOCOCCAL VACCINE 50+ YEARS (1 of 1 - PCV) 05/14/20 08 RSV VACCINE (60+ or ) (1 - Risk 50-74 years 1-dose series) 2008 ZOSTER VACCINE (1 of 2) 2008 INFLUENZA VACCINE (#1) 2024 Insurance MEDICARE PART A AND B MEDICAID [place] Care Teams Welt Trimming Machine Operator Relationship Specialty Start Date End Date Taras Avilez MD [address] [place] [address] [phone] PCP - General Family Practice 07/27/19
--- NOTE | 2025-04-02 06:11 | ED.GENADULT ---
HPI - General Adult General Chief complaint: Recheck/Abnormal Lab/Rx <Rudy Perry MD - Last Filed: 04/02/25 06:13> Stated complaint: HIGH BG <Rudy Perry MD - Last Filed: 04/02/25 06:13> Time Seen by Provider: 04/02/25 05:54 <Rudy Perry MD - Last Filed: 04/02/25 06:13> History of Present Illness HPI narrative: this is a 64-year-old male history of insulin-dependent diabetes presenting for elevated blood sugars. Patient's uses an insulin pump. He says he ran out of insulin last night. When asked why he did not replace the insulin a his pump he said he did not know how and that his daughter typically did that for him. When he woke up this morning And gave himself 15 units of fact cyst acting insulin. He then called EMS who found his blood sugar to be over 400. He did have some nausea but no vomiting. No fevers chills chest pain difficulty breathing abdominal pain or diarrhea. No recent illness. <Rudy Perry MD - Last Filed: 04/02/25 06:13> Related Data Home medications: Home Medications ?Medication ?Instructions ?Recorded ?Confirmed ?Last Taken ?Type atorvastatin 20 mg tablet (Lipitor) 20 mg PO DAILY 06/21/19 02/05/25 02/04/25 History blood sugar diagnostic (Contour 06/21/19 02/05/25 Unknown History Next Test Strips) fenofibrate 160 mg tablet 160 mg PO DAILY 06/21/19 02/05/25 02/04/25 History lisinopril 10 mg tablet 10 mg PO DAILY 11/28/22 02/05/25 02/04/25 History <Rudy Perry MD - Last Filed: 04/02/25 06:13> Allergies/adverse reactions: Allergies Allergy/AdvReac Type Severity Reaction Status Date / Time No Known Allergies Allergy Verified 10/30/23 03:17 <Rudy Perry MD - Last Filed: 04/02/25 06:13> [facility] Past Medical History Medical History: Medical History (Updated 04/02/25 @ 11:28 by Suri Cardenas MD) Type 1 diabetes diagnosed at [facility] via antibody testing per patient's daughter Opioid use, unspecified, uncomplicated Emphysema, unspecified Atherosclerosis of [place] coronary artery of [place] heart without angina pectoris 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 He is on disability. Smokes marijuana and drinks alcohol in moderation. Denies tobacco use. He designates his mother, Carleen Arevalo, as his surrogate decision maker. Code status: Full code. Tobacco type: cigarettes Smoking end date: 01/30/08 Alcohol intake: never Substance use: never Substance use type: marijuana Lack of Transportation: No Lack of Food: Never True Current Housing: I Have Housing Concerned About Future Housing: No Difficulty Paying Gas/Electric Bills: No Difficulty Paying for Meds: No Currently Unemployed: YES Education: Decline to Answer Difficulty w/ Childcare or Family Care: No Living arrangements: with family Occupation/Education: unemployed Gender identity (if verbalized by the patient): Male Sexual Orientation (if Verbalized by the Patient): Straight or Heterosexual Spiritual care concerns: No <Rudy Perry MD - Last Filed: 04/02/25 06:13> Exam Narrative: APPEARANCE: No apparent distress. Head: atraumatic. EYES: EOMI, NOSE: Atraumatic NECK: Trachea midline RESPIRATORY: No increased rate of breathing Clear to auscultation CARDIOVASCULAR: RRR, no peripheral edema ABDOMINAL: Non-distended soft nontender MUSCULOSKELETAl: No obvious deformities NEURO: Alert. Moving 4/4 extremities SKIN:: Warm, dry. Normal color PSYCHIATRIC: Normal affect <Rudy Perry MD - Last Filed: 04/02/25 06:13> Course Course Emergency Course: Patient signed out to me pending the rest of his workup which included urinalysis, repeat troponin, and viral swab. Urinalysis showed glucosuria in mild ketonuria but no signs of infection. Repeat troponin within normal limits. Viral swab negative. Patient is reassessed at 11:20 a.m.. He reports that one of his daughter's (4 children) is a nurse and she is available both the pick him up as well as get his medications including his insulin pump working again as she helps him with this at baseline. Otherwise stable for discharge. <Suri Cardenas MD - Last Filed: 04/02/25 13:26> Vital Signs Vital signs: Vital Signs Temperature 98.2 F 04/02/25 05:45 Pulse Rate 94 04/02/25 05:45 Respiratory Rate 16 04/02/25 05:45 Blood Pressure 163/84 H 04/02/25 05:45 Pulse Oximetry 98 04/02/25 05:45 Oxygen Delivery Room Air 04/02/25 05:45 Temperature 98.2 F 04/02/25 05:45 Pulse Rate 118 H 04/02/25 10:13 Respiratory Rate 24 H 04/02/25 10:13 Blood Pressure 179/93 H 04/02/25 10:13 Pulse Oximetry 99 04/02/25 10:13 Oxygen Delivery Room Air 04/02/25 05:45 <Rudy Perry MD - Last Filed: 04/02/25 06:13> Vital Signs Temperature 98.2 F 04/02/25 05:45 Pulse Rate 94 04/02/25 05:45 Respiratory Rate 16 04/02/25 05:45 Blood Pressure 163/84 H 04/02/25 05:45 Pulse Oximetry 98 04/02/25 05:45 Oxygen Delivery Room Air 04/02/25 05:45 Temperature 98.2 F 04/02/25 05:45 Pulse Rate 118 H 04/02/25 10:13 Respiratory Rate 24 H 04/02/25 10:13 Blood Pressure 179/93 H 04/02/25 10:13 Pulse Oximetry 99 04/02/25 10:13 Oxygen Delivery Room Air 04/02/25 05:45 <Suri Cardenas MD - Last Filed: 04/02/25 13:26> Medical Decision Making Vital Signs Vital Signs: Vital Signs Temperature 98.2 F 04/02/25 05:45 Pulse Rate 94 04/02/25 05:45 Respiratory Rate 16 04/02/25 05:45 Blood Pressure 163/84 H 04/02/25 05:45 Pulse Oximetry 98 04/02/25 05:45 Oxygen Delivery Room Air 04/02/25 05:45 Temperature 98.2 F 04/02/25 05:45 Pulse Rate 118 H 04/02/25 10:13 Respiratory Rate 24 H 04/02/25 10:13 Blood Pressure 179/93 H 04/02/25 10:13 Pulse Oximetry 99 04/02/25 10:13 Oxygen Delivery Room Air 04/02/25 05:45 <Rudy Perry MD - Last Filed: 04/02/25 06:13> Vital Signs Temperature 98.2 F 04/02/25 05:45 Pulse Rate 94 04/02/25 05:45 Respiratory Rate 16 04/02/25 05:45 Blood Pressure 163/84 H 04/02/25 05:45 Pulse Oximetry 98 04/02/25 05:45 Oxygen Delivery Room Air 04/02/25 05:45 Temperature 98.2 F 04/02/25 05:45 Pulse Rate 118 H 04/02/25 10:13 Respiratory Rate 24 H 04/02/25 10:13 Blood Pressure 179/93 H 04/02/25 10:13 Pulse Oximetry 99 04/02/25 10:13 Oxygen Delivery Room Air 04/02/25 05:45 <Suri Cardenas MD - Last Filed: 04/02/25 13:26> Lab Data Result diagrams: 04/02/25 06:17 04/02/25 06:17 <Rudy Perry MD - Last Filed: 04/02/25 06:13> Labs: Lab Results 04/02/25 04/02/25 04/02/25 Range/Units 05:52 06:17 06:41 WBC 12.1 H (4.5-10.0) K/mm3 RBC 4.72 (4.6-6.20) M/mm3 Hgb 13.4 L (14.0-18.0) g/dL Hct 40.7 L (42.0-52.0) % MCV 86.2 (80-100) fl MCH 28.4 (26-34) pg MCHC 32.9 (32-36) g/dl RDW 13.0 (11.5-14.5) % Plt Count 287 (150-375) k/mm3 MPV 9.0 (7.4-10.4) fl Immature Gran % (Auto) 0.3 (0-0.5) % Neut % (Auto) 73.6 H (45.5-73.1) % Lymph % (Auto) 13.8 L (18.3-44.2) % [place] % (Auto) 7.0 (2.6-8.5) % Eos % (Auto) 3.9 (0-4.4) % Baso % (Auto) 1.4 H (0.2-1.2) % Lymph # (Auto) 1.66 (0.9-3.2) K/mm3 Warrick # (Auto) 0.9 H (0.1-0.6) K/mm3 Eos # (Auto) 0.5 H (0-0.3) K/mm3 Baso # (Auto) 0.2 H (0.0-0.1) K/mm3 Abs Immat Gran (auto) 0.04 H (0.00-0.031) K/mm3 Absolute Neuts (auto) 8.9 H (1.3-6.7) K/mm3 Absolute Nucleated RBC 0.000 (0.0-0.012) K/mm3 Nucleated RBC % 0.0 (0.0-0.2) % Sodium 132 L (137-145) mmol/L Potassium 4.4 (3.4-5.0) mmol/L Chloride 99 (98-107) mmol/L Carbon Dioxide 24 (22-30) mmol/L Anion Gap 9 (4-12) mmol/L BUN 19 (9-20) mg/dL Creatinine 0.65 L (0.7-1.3) mg/dL Estim Creat Clear Calc 104 ml/min Estimated GFR > 60 (59 - ) Glucose 448 H (65-110) mg/dL POC Capillary Glucose 483 H (65-105) mg/dl Calcium 9.0 (8.4-10.2) mg/dL Phosphorus 3.3 (2.5-4.5) mg/dL Magnesium 1.5 L (1.6-2.3) mg/dL Total Bilirubin 0.5 (0.2-1.3) mg/dL AST 26 (17-59) U/L ALT 24 (6-50) U/L Alkaline Phosphatase 63 (38-126) U/L Troponin I < 0.012 (0.000-0.034) ng/mL Total Protein 7.2 (6.3-8.2) g/dL Albumin 4.3 (3.5-5.1) g/dL Beta-Hydroxybutyrate/Acetoacetate 1.00 H (0.02-0.27) mmol/L Urine Color Yellow (Yellow) Urine Appearance Clear (Clear) Urine pH 5.0 (5.0-9.0) Ur Specific Oneco 1.025 (1.001-1.035) Urine Protein 1+ H (Negative) mg/dL Urine Glucose (UA) 3+ H (Negative) mg/dL Urine Ketones 1+ H (Negative) mg/dL Ur Blood (Man) Trace (Negative) Urine Nitrate Negative (Negative) Urine Bilirubin Negative (Negative) Urine Urobilinogen 0.2 (<2.0) mg/dL Leukocyte Esterase Rfl Negative (Negative) ABIGAIL/UL Urine RBC 0-2 (0-2) /hpf Urine WBC 0-5 (0-3) /hpf Ur Squamous Epith Cells None seen (Few) /hpf Urine Bacteria None seen /hpf Urine Casts 0-2 Influenza A (RT-PCR) Negative (Negative) Influenza B (RT-PCR) Negative (Negative) RSV (RT-PCR) Negative (Negative) SARS-CoV-2 RNA (RT-PCR) Negative (Negative) 04/02/25 Range/Units 10:07 WBC (4.5-10.0) K/mm3 RBC (4.6-6.20) M/mm3 Hgb (14.0-18.0) g/dL Hct (42.0-52.0) % MCV (80-100) fl MCH (26-34) pg MCHC (32-36) g/dl RDW (11.5-14.5) % Plt Count (150-375) k/mm3 MPV (7.4-10.4) fl Immature Gran % (Auto) (0-0.5) % Neut % (Auto) (45.5-73.1) % Lymph % (Auto) (18.3-44.2) % [place] % (Auto) (2.6-8.5) % Eos % (Auto) (0-4.4) % Baso % (Auto) (0.2-1.2) % Lymph # (Auto) (0.9-3.2) K/mm3 [place] # (Auto) (0.1-0.6) K/mm3 Eos # (Auto) (0-0.3) K/mm3 Baso # (Auto) (0.0-0.1) K/mm3 Abs Immat Gran (auto) (0.00-0.031) K/mm3 Absolute Neuts (auto) (1.3-6.7) K/mm3 Absolute Nucleated RBC (0.0-0.012) K/mm3 Nucleated RBC % (0.0-0.2) % Sodium (137-145) mmol/L Potassium (3.4-5.0) mmol/L Chloride (98-107) mmol/L Carbon Dioxide (22-30) mmol/L Anion Gap (4-12) mmol/L BUN (9-20) mg/dL Creatinine (0.7-1.3) mg/dL Estim Creat Clear Calc ml/min Estimated GFR (59 - ) Glucose (65-110) mg/dL POC Capillary Glucose (65-105) mg/dl Calcium (8.4-10.2) mg/dL Phosphorus (2.5-4.5) mg/dL Magnesium (1.6-2.3) mg/dL Total Bilirubin (0.2-1.3) mg/dL AST (17-59) U/L ALT (6-50) U/L Alkaline Phosphatase (38-126) U/L Troponin I 0.012 (0.000-0.034) ng/mL Total Protein (6.3-8.2) g/dL Albumin (3.5-5.1) g/dL Beta-Hydroxybutyrate/Acetoacetate (0.02-0.27) mmol/L Urine Color (Yellow) Urine Appearance (Clear) Urine pH (5.0-9.0) Ur Specific Oneco (1.001-1.035) Urine Protein (Negative) mg/dL Urine Glucose (UA) (Negative) mg/dL Urine Ketones (Negative) mg/dL Ur Blood (Man) (Negative) Urine Nitrate (Negative) Urine Bilirubin (Negative) Urine Urobilinogen (<2.0) mg/dL Leukocyte Esterase Rfl (Negative) ABIGAIL/UL Urine RBC (0-2) /hpf Urine WBC (0-3) /hpf Ur Squamous Epith Cells (Few) /hpf Urine Bacteria /hpf Urine Casts Influenza A (RT-PCR) (Negative) Influenza B (RT-PCR) (Negative) RSV (RT-PCR) (Negative) SARS-CoV-2 RNA (RT-PCR) (Negative) <Rudy Perry MD - Last Filed: 04/02/25 06:13> Lab Results 04/02/25 04/02/25 04/02/25 Range/Units 05:52 06:17 06:41 WBC 12.1 H (4.5-10.0) K/mm3 RBC 4.72 (4.6-6.20) M/mm3 Hgb 13.4 L (14.0-18.0) g/dL Hct 40.7 L (42.0-52.0) % MCV 86.2 (80-100) fl MCH 28.4 (26-34) pg MCHC 32.9 (32-36) g/dl RDW 13.0 (11.5-14.5) % Plt Count 287 (150-375) k/mm3 MPV 9.0 (7.4-10.4) fl Immature Gran % (Auto) 0.3 (0-0.5) % Neut % (Auto) 73.6 H (45.5-73.1) % Lymph % (Auto) 13.8 L (18.3-44.2) % [place] % (Auto) 7.0 (2.6-8.5) % Eos % (Auto) 3.9 (0-4.4) % Baso % (Auto) 1.4 H (0.2-1.2) % Lymph # (Auto) 1.66 (0.9-3.2) K/mm3 [place] # (Auto) 0.9 H (0.1-0.6) K/mm3 Eos # (Auto) 0.5 H (0-0.3) K/mm3 Baso # (Auto) 0.2 H (0.0-0.1) K/mm3 Abs Immat Gran (auto) 0.04 H (0.00-0.031) K/mm3 Absolute Neuts (auto) 8.9 H (1.3-6.7) K/mm3 Absolute Nucleated RBC 0.000 (0.0-0.012) K/mm3 Nucleated RBC % 0.0 (0.0-0.2) % Sodium 132 L (137-145) mmol/L Potassium 4.4 (3.4-5.0) mmol/L Chloride 99 (98-107) mmol/L Carbon Dioxide 24 (22-30) mmol/L Anion Gap 9 (4-12) mmol/L BUN 19 (9-20) mg/dL Creatinine 0.65 L (0.7-1.3) mg/dL Estim Creat Clear Calc 104 ml/min Estimated GFR > 60 (59 - ) Glucose 448 H (65-110) mg/dL POC Capillary Glucose 483 H (65-105) mg/dl Calcium 9.0 (8.4-10.2) mg/dL Phosphorus 3.3 (2.5-4.5) mg/dL Magnesium 1.5 L (1.6-2.3) mg/dL Total Bilirubin 0.5 (0.2-1.3) mg/dL AST 26 (17-59) U/L ALT 24 (6-50) U/L Alkaline Phosphatase 63 (38-126) U/L Troponin I < 0.012 (0.000-0.034) ng/mL Total Protein 7.2 (6.3-8.2) g/dL Albumin 4.3 (3.5-5.1) g/dL Beta-Hydroxybutyrate/Acetoacetate 1.00 H (0.02-0.27) mmol/L Urine Color Yellow (Yellow) Urine Appearance Clear (Clear) Urine pH 5.0 (5.0-9.0) Ur Specific Oneco 1.025 (1.001-1.035) Urine Protein 1+ H (Negative) mg/dL Urine Glucose (UA) 3+ H (Negative) mg/dL Urine Ketones 1+ H (Negative) mg/dL Ur Blood (Man) Trace (Negative) Urine Nitrate Negative (Negative) Urine Bilirubin Negative (Negative) Urine Urobilinogen 0.2 (<2.0) mg/dL Leukocyte Esterase Rfl Negative (Negative) ABIGAIL/UL Urine RBC 0-2 (0-2) /hpf Urine WBC 0-5 (0-3) /hpf Ur Squamous Epith Cells None seen (Few) /hpf Urine Bacteria None seen /hpf Urine Casts 0-2 Influenza A (RT-PCR) Negative (Negative) Influenza B (RT-PCR) Negative (Negative) RSV (RT-PCR) Negative (Negative) SARS-CoV-2 RNA (RT-PCR) Negative (Negative) 04/02/25 Range/Units 10:07 WBC (4.5-10.0) K/mm3 RBC (4.6-6.20) M/mm3 Hgb (14.0-18.0) g/dL Hct (42.0-52.0) % MCV (80-100) fl MCH (26-34) pg MCHC (32-36) g/dl RDW (11.5-14.5) % Plt Count (150-375) k/mm3 MPV (7.4-10.4) fl Immature Gran % (Auto) (0-0.5) % Neut % (Auto) (45.5-73.1) % Lymph % (Auto) (18.3-44.2) % [place] % (Auto) (2.6-8.5) % Eos % (Auto) (0-4.4) % Baso % (Auto) (0.2-1.2) % Lymph # (Auto) (0.9-3.2) K/mm3 [place] # (Auto) (0.1-0.6) K/mm3 Eos # (Auto) (0-0.3) K/mm3 Baso # (Auto) (0.0-0.1) K/mm3 Abs Immat Gran (auto) (0.00-0.031) K/mm3 Absolute Neuts (auto) (1.3-6.7) K/mm3 Absolute Nucleated RBC (0.0-0.012) K/mm3 Nucleated RBC % (0.0-0.2) % Sodium (137-145) mmol/L Potassium (3.4-5.0) mmol/L Chloride (98-107) mmol/L Carbon Dioxide (22-30) mmol/L Anion Gap (4-12) mmol/L BUN (9-20) mg/dL Creatinine (0.7-1.3) mg/dL Estim Creat Clear Calc ml/min Estimated GFR (59 - ) Glucose (65-110) mg/dL POC Capillary Glucose (65-105) mg/dl Calcium (8.4-10.2) mg/dL Phosphorus (2.5-4.5) mg/dL Magnesium (1.6-2.3) mg/dL Total Bilirubin (0.2-1.3) mg/dL AST (17-59) U/L ALT (6-50) U/L Alkaline Phosphatase (38-126) U/L Troponin I 0.012 (0.000-0.034) ng/mL Total Protein (6.3-8.2) g/dL Albumin (3.5-5.1) g/dL Beta-Hydroxybutyrate/Acetoacetate (0.02-0.27) mmol/L Urine Color (Yellow) Urine Appearance (Clear) Urine pH (5.0-9.0) Ur Specific Oneco (1.001-1.035) Urine Protein (Negative) mg/dL Urine Glucose (UA) (Negative) mg/dL Urine Ketones (Negative) mg/dL Ur Blood (Man) (Negative) Urine Nitrate (Negative) Urine Bilirubin (Negative) Urine Urobilinogen (<2.0) mg/dL Leukocyte Esterase Rfl (Negative) ABIGAIL/UL Urine RBC (0-2) /hpf Urine WBC (0-3) /hpf Ur Squamous Epith Cells (Few) /hpf Urine Bacteria /hpf Urine Casts Influenza A (RT-PCR) (Negative) Influenza B (RT-PCR) (Negative) RSV (RT-PCR) (Negative) SARS-CoV-2 RNA (RT-PCR) (Negative) <Suri Cardenas MD - Last Filed: 04/02/25 13:26> ABG Data ABG results: 04/02/25 06:17 VBG pH 7.385 VBG pCO2 39.4 L VBG pO2 44.8 VBG HCO3 23.0 L O2 Delivery Device Room air O2 Liters/Min 0.0 FiO2 21 <Rudy Perry MD - Last Filed: 04/02/25 06:13> 04/02/25 06:17 VBG pH 7.385 VBG pCO2 39.4 L VBG pO2 44.8 VBG HCO3 23.0 L O2 Delivery Device Room air O2 Liters/Min 0.0 FiO2 21 <Suri Cardenas MD - Last Filed: 04/02/25 13:26> Discharge Plan Discharge Clinical Impression: Hyperglycemia due to diabetes mellitus <Rudy Perry MD - Last Filed: 04/02/25 06:13> Patient Disposition: Home <Rudy Perry MD - Last Filed: 04/02/25 06:13> Condition: Stable <Rudy Perry MD - Last Filed: 04/02/25 06:13> Instructions: Antibiotic Form, Diabetic Hyperglycemia (ED) <Rudy Perry MD - Last Filed: 04/02/25 06:13> Additional Instructions: Continue taking your medications as prescribed. Have your daughter help with this including your insulin. Follow-up with your primary care physician/provider. Return to the emergency department with any new or worsening symptoms. <Rudy Perry MD - Last Filed: 04/02/25 06:13> Patient Language: [place] <Rudy Perry MD - Last Filed: 04/02/25 06:13> Prescriptions: No Action atorvastatin [Lipitor] 20 mg tablet 20 mg PO DAILY (DME) Contour Next Test Strips Strip MISCELLANEOUS fenofibrate 160 mg tablet 160 mg PO DAILY lisinopril 10 mg tablet 10 mg PO DAILY dextrose [Glutose-15] 40 % Gel 15 g PO PRN PRN (Reason: Hypoglycemia) Qty: 112.5 0RF lisinopril 5 mg Tablet 5 mg PO QAM Qty: 30 0RF polyethylene glycol 3350 [Miralax] 17 gram Powder In Packet 17 g PO QAM PRN (Reason: Constipation) Qty: 14 0RF insulin glargine [Lantus Solostar U-100 Insulin] 100 unit/mL (3 mL) insulin pen 42 unit subcut DAILY Qty: 15 3RF albuterol sulfate 90 mcg/actuation HFA aerosol inhaler 2 puff inhalation Q4H PRN (Reason: shortness of breath or wheezing) Qty: 8.5 1RF hydrocodone-acetaminophen 7.5-325 mg tablet 7.5 - 325 tablet PO BID PRN (Reason: pain) Qty: 60 0RF (DME) pen needle, diabetic [BD Ultra-Fine Sharyn Pen Needle] 32 gauge x 5/32 needle MISCELLANEOUS Qty: 100 3RF Rx Instructions: As directed (DME) OneTouch Verio test strips Strip See Rx Instructions .ROUTE .COMPLEX Qty: 100 3RF Dose Instruction: USE 1 STRIP TO CHECK GLUCOSE TWICE DAILY Rx Instructions: USE 1 STRIP TO CHECK GLUCOSE TWICE DAILY <Rudy Perry MD - Last Filed: 04/02/25 06:13> Follow-up/Referrals: Javier,SANDRA Corona [Primary Care Provider, Unknown] <Rudy Perry MD - Last Filed: 04/02/25 06:13> Stand Alone Forms: Work/School Release IP <Rudy Perry MD - Last Filed: 04/02/25 06:13> Time of Disposition: 11:28 <Rudy Perry MD - Last Filed: 04/02/25 06:13> 11:28 <Suri Cardenas MD - Last Filed: 04/02/25 13:26>
[2025-04-02 06:24] LABS: Fractional Inspired Oxygen 21 %; HCO3 VBG 23.0 mEq/l (24.0-30.0); PCO2 VBG 39.4 mmHg (42.0-48.0); PO2 VBG 44.8 mmHg (35.0-45.0); pH VBG 7.385 (7.300-7.400)
[2025-04-02 06:25] LABS: Liters per Minute 0.0 LPM
[2025-04-02 06:26] LABS: Hematocrit 40.7 % (42.0-52.0); Hemoglobin 13.4 g/dL (14.0-18.0); Immature Granulocyte Percent A 0.3 % (0-0.5); Lymphocytes Absolute Auto 1.66 K/mm3 (0.9-3.2); Mean Corpuscular HGB Conc 32.9 g/dl (32-36); Mean Corpuscular Hemoglobin 28.4 pg (26-34); Mean Corpuscular Volume 86.2 fl (80-100); Nucleated Red Blood Cells Absolute Auto 0.000 K/mm3 (0.0-0.012); Nucleated Red Blood Cells Perc 0.0 % (0.0-0.2); Platelet Count Result 287 k/mm3 (150-375); Red Blood Count 4.72 M/mm3 (4.6-6.20); White Blood Count 12.1 K/mm3 (4.5-10.0)
[2025-04-02] MEDS: ACETAMINOPHEN 500 MG TABLET 1000 MG PO (06:42)
[2025-04-02 06:47] LABS: Alanine Aminotransferase 24 U/L (6-50); Albumin Level 4.3 g/dL (3.5-5.1); Alkaline Phosphatase 63 U/L (38-126); Anion Gap 9 mmol/L (4-12); Aspartate Amino Transferase 26 U/L (17-59); Bilirubin,Total 0.5 mg/dL (0.2-1.3); Blood Urea Nitrogen 19 mg/dL (9-20); Calcium 9.0 mg/dL (8.4-10.2); Carbon Dioxide 24 mmol/L (22-30); Chloride 99 mmol/L (98-107); Estimated CRCL calculation 104 ml/min; Estimated Glomerular Filt Rate > 60; Glucose 448 mg/dL (65-110); Magnesium 1.5 mg/dL (1.6-2.3); Potassium 4.4 mmol/L (3.4-5.0); Sodium 132 mmol/L (137-145); Total Protein 7.2 g/dL (6.3-8.2)
[2025-04-02 06:54] LABS: Beta-Hydroxybutyrate/Acetoace. 1.00 mmol/L (0.02-0.27)
[2025-04-02 07:00] LABS: Add Urine Microscopic? YES; Appearance Urine Clear (Clear); Glucose Urine UA 3+ mg/dL (Negative); Leukocyte Esterase Ur Negative LEU/UL (Negative); Nitrate Urine Negative (Negative); Non Pathogenic Casts 0-2; Specific Grav Ur 1.025 (1.001-1.035)
[2025-04-02 07:06] LABS: Influenza A QL RT-PCR Negative (Negative); Influenza B QL RT-PCR Negative (Negative); RSV RNA, RT-PCR Negative (Negative); SARS-CoV-2 RNA PCR Negative (Negative)
[2025-04-02 07:13] LABS: Troponin I < 0.012 ng/mL (0.000-0.034)
[2025-04-02 08:07] VITALS: BP 182/68; PULSE 87; RESP 21; O2SAT 94
--- NOTE | 2025-04-02 10:02 | ECG_ITS ---
Test Date: 2025-04-02 10:11:35 Measurements Intervals Pepin Rate: 89 P: 62 CT: 179 QRS: -74 QRSD: 150 T: 84 QT: 416 QTc: 508 Interpretive Statements SINUS RHYTHM WITH OCCASIONAL VENTRICULAR PREMATURE COMPLEXES RIGHT BUNDLE BRANCH BLOCK [120+ ms QRS DURATION, UPRIGHT V1, 40+ ms S IN I/aVL/V4/V5/V6] LEFT ANTERIOR FASCICULAR BLOCK [QRS AXIS <= -45, QR IN I, RS IN II] LEFT VENTRICULAR HYPERTROPHY AND ST-T CHANGE [VOLTAGE CRITERIA PLUS ST/T ABNORMALITY] POSSIBLE SEPTAL MYOCARDIAL INFARCTION , OF INDETERMINATE AGE [30 ms Q WAVE IN V1/V2] ABNORMAL ECG Compared to ECG 04/02/2025 06:40:15 Myocardial infarct finding now present ST (T wave) deviation still present Electronically Signed On 04-02-2025 14:42:23 POINT OF SALE ASSOCIATE by Nahid Kumari M.D.
[2025-04-02 10:13] VITALS: BP 179/93; PULSE 118; RESP 24; O2SAT 99
[2025-04-02 11:08] LABS: Troponin I 0.012 ng/mL (0.000-0.034)
== END 2025-04-02 13:27 | disposition home or self-care (01) ==
PROVIDERS: Emergency Medicine; Emergency Provider Student in an Organized Health Care Education/Training Program; PCP Physician Assistant
DX: E10.65 Type 1 diabetes mellitus with hyperglycemia (principal); Z20.822 Contact with and (suspected) exposure to COVID-19; J43.9 Emphysema, unspecified; I25.10 Atherosclerotic heart disease of native coronary artery without angina pectoris; I10 Essential (primary) hypertension; E78.2 Mixed hyperlipidemia; Z79.4 Long term (current) use of insulin; Z79.899 Other long term (current) drug therapy; Z96.41 Presence of insulin pump (external) (internal); I49.3 Ventricular premature depolarization; I45.2 Bifascicular block; I51.7 Cardiomegaly
CPT/HCPCS: 36415; 71045; 80053; 81001; 82010; 82803; 82948; 83735; 84100; 84484; 85025; 87637; 93005; 99284; A9270